=== PATIENT | female | born 1945 | race Caucasian/White ===

== ENCOUNTER → 2016-07-31 | Outpatient (CLI) | payer MEDICARE ==
[2015-06-15 11:00] VITALS: BP 102/66
[~2016-07-31] MED LIST: ALLO300T PO; AMLO10TA2 PO; ASPI81TA2 PO; CALC600T4 PO; CARB200T4 PO; CETI10TA22 PO; CHOL400T14 PO; DICL100G7 TP; DIPH50CA PO; ESTR1PAT87 TD; MAGN250T5 PO; METH2.5T PO; NORT25CA PO; OMEP20CA9 PO; OXYC-323 PO; POTA500T5 PO; THYR60TA PO; TRAM50TA PO; TRIA1CAP3 PO; VITA400C36 PO
--- NOTE | 2016-07-31 11:57 | KCIC ---
PROCEDURE MR of the left knee HISTORY Medial left knee pain, and posterior pain, for 1 year. Swelling. COMPARISON None TECHNIQUE The routine multiplanar sequences are obtained. FINDINGS Mild deformity of the medial meniscus compatible with mild degenerative tearing. There is slight extrusion of the medial meniscus from the medial joint compartment. There is abnormal signal within the lateral meniscus at the posterior horn through body segment, with blunting of the free margin, compatible with a tear. Anterior and posterior cruciate ligaments are intact. Medial collateral ligament intact. Iliotibial band unremarkable. Fibular collateral ligament, biceps femoris tendon and popliteus tendon are intact. Extensor mechanism is intact. Moderate joint effusion. Severe chondromalacia at the medial joint compartment with mild subchondral cystic change. Moderate lateral compartment chondromalacia. Minimal subchondral marrow edema at the lateral femoral condyle. Severe chondromalacia at the patella and femoral trochlea. There is no evidence of acute macro fracture or aggressive bone destruction. 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 Measures 5.7 cm longitudinal. IMPRESSION 1. Medial meniscal tear. 2. Lateral meniscal tear. 3. Primary osteoarthritis. Electronically signed by: Lewis Proctor MD (Jul 31, 2016 11:55:12)
== END | disposition home or self-care (01) ==
LOC: KCIC MRI 08:46
PROVIDERS: ATTEND Orthopaedic Surgery
DX: M17.12 Unilateral primary osteoarthritis, left knee (principal); S83.242A Other tear of medial meniscus, current injury, left knee, initial encounter; S83.282A Other tear of lateral meniscus, current injury, left knee, initial encounter; X58.XXXA Exposure to other specified factors, initial encounter; Y93.89 Activity, other specified; Y92.89 Other specified places as the place of occurrence of the external cause; Y99.8 Other external cause status
CPT/HCPCS: 73721

== ENCOUNTER → 2016-08-27 | Outpatient (CLI) | payer MEDICARE ==
[2015-06-15 11:00] VITALS: BP 102/66
--- NOTE | 2016-08-27 14:37 | RAD ---
Examination: Ultrasound left lower extremity venous duplex History: History of left knee surgery, evaluate for Gonzalez's cyst Comparison: None available Technique: Grayscale, color laboratory, spectral waveform is in the left lower extremity venous system were performed Findings: The visualized common femoral vein, superficial femoral vein, popliteal vein demonstrate normal compression and augmentation of flow. The visualized calf veins are patent There is a complex appearing cystic structure identified in the from the level of the left distal thigh to the distal calf measuring 15.7 cm in length likely probably a Gonzalez's cyst or seroma. Impression: 1. No evidence of deep venous thrombosis. 2. Complex appearing cystic structure identified extending from the left distal thigh to the distal calf region measuring 15.7 cm in length could be a Gonzalez's cyst or seroma.
== END | disposition home or self-care (01) ==
LOC: US 12:52
PROVIDERS: ATTEND Orthopaedic Surgery
DX: M79.662 Pain in left lower leg (principal); M79.89 Other specified soft tissue disorders
CPT/HCPCS: 93971

== ENCOUNTER 2017-11-26 16:41 | Inpatient (IN) | payer MEDICARE ==
[~2017-11-26] VITALS: Ht 162.6 cm; Wt 86.3 kg
[2017-11-26] MEDS: ESTRADIOL 1 MG TABLET. PO SCH (10:00)
[~2017-11-26 16:41] MED LIST changes: +ASPI-630 PO; -ASPI81TA2 PO; +DICL100G18 TP; -DICL100G7 TP; +MAGN250T10 PO; -MAGN250T5 PO
[2017-11-26] MEDS ORDERED: oxyCODONE/APAP 5/325 1 TAB TABLET PO ONE (17:45)
[2017-11-26] MEDS ORDERED: diazePAM 5 MG TABLET PO ONE (17:45)
--- NOTE | 2017-11-26 17:49 | PHYS DOC ---
Past Medical History Past Medical History: Hypertension Additional Past Medical Histor: rheumatoid arthritis Smoking: Quit Greater Than 1 Year Adult General Chief Complaint Chief Complaint: LOWER EXT PAIN HPI HPI Patient is a 71-year-old female who presents to the emergency department for evaluation. She is having pain in her left hip area, radiating down the lateral aspect of her left thigh. She states she has chronic back pain, but has not had a pain similar to this ever in the past or she states the pain began last week. She was seen in the emergency department in [place], [place] on Saturday night, and then again today. She states that she has been unable to walk secondary to pain. She denies any numbness, weakness, incontinence, or urinary symptoms. She has not had any fevers or chills, and denies any definite injuries. Movement seems to worsen her pain. There are no alleviating factors to her symptoms. She was placed on Flexeril and [place] 11/24, which did not improve her symptoms. I did speak with her primary care provider, who sent her to the emergency department today here. He had seen her today and [place] twice, and states that he would like us to "find out what's wrong with her and fix it", because the patient cannot live in pain like this. He was concerned the patient might have a hernia in her inguinal canal. The patient did have x-rays of her lumbar spine in her hips done on 11/24, reports of which have been included with her visit. They did show degenerative changes without other acute pathology. Review of Systems Review of Systems Constitutional: Denies fever or chills [] Eyes: Denies change in visual acuity, redness, or eye pain [] HENT: Denies nasal congestion or sore throat [] Respiratory: Denies cough or shortness of breath [] Cardiovascular: The patient denies any shortness of breath, chest pain, palpitations, or orthopnea [] GI: Denies abdominal pain, nausea, vomiting, bloody stools or diarrhea [] : Denies dysuria or hematuria [] Musculoskeletal: Denies back pain or joint pain other than the left hip as noted.[] Integument: Denies rash or skin lesions [] Neurologic: Denies headache, focal weakness or sensory changes [] Endocrine: Denies polyuria or polydipsia [] All other systems were reviewed and found to be within normal limits, except as documented in this note. Current Medications Current Medications Current Medications Medications (Trade) Dose Ordered Sig/Daya Start Time Stop Time Status Last Admin Dose Admin Diazepam (Valium) 5 mg 1X ONCE 11/26/17 17:45 11/26/17 17:46 DC 11/26/17 19:37 5 MG Oxycodone/ Acetaminophen (Percocet 5/325) 1 tab 1X ONCE 11/26/17 17:45 11/26/17 17:46 DC 11/26/17 19:37 1 TAB Allergies Allergies Allergies Coded Allergies Type Severity Reaction Last Updated Verified Iodinated Contrast- Oral and IV Dye Allergy Severe SWELLING 06/14/15 Yes Penicillins Allergy Severe RASH 06/14/15 Yes NSAIDS (Non-Steroidal Anti-Inflamma Allergy Intermediate 11/26/17 Yes cephalexin Allergy Intermediate 11/26/17 Yes codeine Allergy Intermediate HEART PALPITATIONS 06/14/15 Yes erythromycin base Allergy Intermediate 11/26/17 Yes hydrocodone Allergy Intermediate 11/26/17 Yes ibuprofen Allergy Intermediate 11/26/17 Yes indomethacin Allergy Intermediate 11/26/17 Yes morphine Allergy Intermediate 11/26/17 Yes pentazocine Allergy Intermediate 11/26/17 Yes tetracycline Allergy Intermediate 11/26/17 Yes gabapentin Adverse Reaction Mild JERKINESS 06/14/15 Yes Physical Exam Physical Exam PHYSICAL EXAM: CONSTITUTIONAL: Well developed, well nourished HEAD: normocephalic, atraumatic EENT: PERRL, EOMI. Conjunctivae normal color, sclerae non-icteric; moist mucous membranes. NECK: Supple, non-tender; no meningismus. LUNGS: Lungs CTA, breathing even and unlabored. Normal air movement. HEART: Regular rate and rhythm, no murmur CHEST: No deformity; non-tender ABDOMEN: The abdomen is soft, and non-tender, no masses or bruits. EXTREM: Normal ROM; no deformity, no calf tenderness. Normal pulses palpable in all extremities, including the lower extremities bilaterally, strong dorsalis pedis pulses. There is no pedal edema. SKIN: No rash; no diaphoresis NEURO: Alert; normal speech and cognition; CN's grossly intact; strength grossly intact without focal deficit. There is no foot drop. There is no perineal anesthesia or distal sensory deficit. BACK: No CVA TTP.There is no bony tenderness to palpation of the thoracic or lumbar spine. MUSCULOSKELETAL: There is diffuse tenderness to palpation of the left hip and left lower sacral area, posteriorly. There is also tenderness to palpation laterally. Straight leg raise is positive at about 45. Current Patient Data Vital Signs Vital Signs Date Time Temp Pulse Resp B/P (MAP) Pulse Ox O2 Delivery O2 Flow Rate FiO2 11/26/17 19:37 16 98 Room Air 11/26/17 19:22 91 136/78 (97) 2.0 11/26/17 18:00 98.3 98.3 Lab Values Laboratory Tests Test 11/26/17 18:43 11/26/17 19:01 White Blood Count 9.1 x10^3/uL (4.0-11.0) Red Blood Count 4.03 x10^6/uL (3.50-5.40) Hemoglobin 12.8 g/dL (12.0-15.5) Hematocrit 38.4 % (36.0-47.0) Mean Corpuscular Volume 95 fL (79-100) Mean Corpuscular Hemoglobin 32 pg (25-35) Mean Corpuscular Hemoglobin Concent 33 g/dL (31-37) Red Cell Distribution Width 14.1 % (11.5-14.5) Platelet Count 155 x10^3/uL (140-400) Neutrophils (%) (Auto) 73 % (31-73) Lymphocytes (%) (Auto) 12 % (24-48) L Monocytes (%) (Auto) 12 % (0-9) H Eosinophils (%) (Auto) 3 % (0-3) Basophils (%) (Auto) 0 % (0-3) Neutrophils # (Auto) 6.7 x10^3uL (1.8-7.7) Lymphocytes # (Auto) 1.1 x10^3/uL (1.0-4.8) Monocytes # (Auto) 1.1 x10^3/uL (0.0-1.1) Eosinophils # (Auto) 0.3 x10^3/uL (0.0-0.7) Basophils # (Auto) 0.0 x10^3/uL (0.0-0.2) Erythrocyte Sedimentation Rate 63 (0-25) H Sodium Level 140 mmol/L (136-145) Potassium Level 3.3 mmol/L (3.5-5.1) L Chloride Level 101 mmol/L (98-107) Carbon Dioxide Level 34 mmol/L (21-32) H Anion Gap 5 (6-14) L Blood Urea Nitrogen 14 mg/dL (7-20) Creatinine 0.7 mg/dL (0.6-1.0) Estimated GFR (Cockcroft-Gault) 82.3 BUN/Creatinine Ratio 20 (6-20) Glucose Level 96 mg/dL (70-99) Calcium Level 8.5 mg/dL (8.5-10.1) Total Bilirubin 0.3 mg/dL (0.2-1.0) Aspartate Amino Transferase (AST) 13 U/L (15-37) L Alanine Aminotransferase (ALT) 34 U/L (14-59) Alkaline Phosphatase 87 U/L (46-116) C-Reactive Protein, Quantitative 131.5 mg/L (0-3.3) H Total Protein 6.9 g/dL (6.4-8.2) Albumin 3.0 g/dL (3.4-5.0) L Albumin/Globulin Ratio 0.8 (1.0-1.7) L Urine Collection Type Unknown Urine Color Yellow Urine Clarity Clear Urine pH 7.0 Urine Specific [place] 1.015 Urine Protein Negative mg/dL (NEG-TRACE) Urine Glucose (UA) Negative mg/dL (NEG) Urine Ketones (Stick) Negative mg/dL (NEG) Urine Blood Moderate (NEG) Urine Nitrite Negative (NEG) Urine Bilirubin Negative (NEG) Urine Urobilinogen Dipstick 0.2 mg/dL (0.2 mg/dL) Urine Leukocyte Esterase Large (NEG) Urine RBC 3-5 /HPF (0-2) Urine WBC >40 /HPF (0-4) Urine Squamous Epithelial Cells Many /LPF Urine Bacteria Moderate /HPF (0-FEW) Laboratory Tests 11/26/17 18:43 Laboratory Tests 11/26/17 18:43 EKG EKG [] Radiology/Procedures Radiology/Procedures Impression: 1. Constipation. 2. Moderate left hip effusion with enhancement. Clinical correlation is suggested. Course & Med Decision Making Course & Med Decision Making Pertinent Labs and Imaging studies reviewed. (See chart for details) [6:00 PM: Pt care turned over to Dr Leon at shift change, pending work-up and final disposition.] I assumed care of this patient from Dr. Vang at shift turnover. At that time, CT scan was pending as well as labs. I did reexamine the patient. She does have some range of motion about the left hip that is tolerable but overall has pain. She describes groin pain. CT scan ultimately returned with a moderate effusion in that joint. Her CRP returned over 1:30. The patient does have known psoriatic arthritis for which she takes Humira as well as methotrexate. The patient has increased risk for infection but her clinical picture is not entirely clear. Decision is made to admit the patient for pain control. Orthopedic and infectious disease consults are placed. Blood cultures are collected. Antibiotics are held pending Ortho evaluation with the goal to not interfere with any additional specimen collection. The patient is nontoxic and afebrile at the time of admission. I discussed this patient with Dr. Braxton who will primarily admit the patient. Bridge orders are placed. Consults for Ortho and infectious disease are placed. Patient Dragon Disclaimer Dragon Disclaimer This electronic medical record was generated, in whole or in part, using a voice recognition dictation system. Departure Departure Referrals: GALINDO RIOS (PCP) TAMIR ZIMMERMAN MD Nov 26, 2017 17:48 NARESH LEON DO Nov 27, 2017 01:46
--- NOTE | 2017-11-26 18:14 | RAD ---
Abdominal and Pelvis CT, Without Contrast: History: 4 days of severe left groin pain. Comparison: None. Procedure: Axial images are obtained of the abdomen and pelvis, without IV or oral contrast. CT Abdomen without Contrast: Findings: Evaluation of solid organs is limited without contrast. Evaluation of stomach and bowel is limited without oral contrast. Liver: Normal. Spleen: Normal. Pancreas: Normal. Adrenal Glands: Normal. Kidneys: Normal. There is no free air or free fluid. There is no lymphadenopathy. Impression: Please see CT Pelvis without Contrast. End Impression. CT Pelvis without Contrast: Findings: The urinary bladder is well distended but otherwise appears normal. There is no free fluid. There is no lymphadenopathy. There is no pericolonic inflammation identified. The appendix is not seen. There is air and stool scattered throughout the colon. There is a moderate left joint effusion with enhancement. Impression: 1. Constipation. 2. Moderate left hip effusion with enhancement. Clinical correlation is suggested. End impression PQRS Compliance Statement: One or more of the following individualized dose reduction techniques were utilized for this examination: 1. Automated exposure control 2. Adjustment of the mA and/or kV according to patient size 3. Use of iterative reconstruction technique Electronically signed by: Renzo Valverde III, MD (11/26/2017 6:10 PM) [facility]
[2017-11-26 18:52] LABS: BASO % 0 % (0-3); EOS # 0.3 x10^3/uL (0.0-0.7); EOS % 3 % (0-3); HEMATOCRIT 38.4 % (36.0-47.0); HEMOGLOBIN 12.8 g/dL (12.0-15.5); LYMPH # 1.1 x10^3/uL (1.0-4.8); LYMPH % 12 % (24-48); MEAN CORPUSCULAR HEMOGLOBIN 32 pg (25-35); MEAN CORPUSCULAR HGB CONC 33 g/dL (31-37); MEAN CORPUSCULAR VOLUME 95 fL (79-100); MONO # 1.1 x10^3/uL (0.0-1.1); MONO % 12 % (0-9); NEUT # 6.7 x10^3uL (1.8-7.7); NEUT % 73 % (31-73); PLATELET COUNT 155 x10^3/uL (140-400); RED BLOOD COUNT 4.03 x10^6/uL (3.50-5.40); RED CELL DISTRIBUTION WIDTH 14.1 % (11.5-14.5); WHITE BLOOD COUNT 9.1 x10^3/uL (4.0-11.0)
[2017-11-26 19:07] LABS: CALCIUM 8.5 mg/dL (8.5-10.1); CREATININE 0.7 mg/dL (0.6-1.0); GFR 82.3; POTASSIUM 3.3 mmol/L (3.5-5.1)
[2017-11-26 19:14] LABS: ALBUMIN/GLOBULIN RATIO 0.8 (1.0-1.7); C-REACTIVE PROTEIN 131.5 mg/L (0-3.3); TOTAL BILIRUBIN 0.3 mg/dL (0.2-1.0); TOTAL PROTEIN 6.9 g/dL (6.4-8.2)
[2017-11-26] MEDS ORDERED: ONDANSETRON PF 4 MG/2 ML VIAL. IV PRN (20:45)
[2017-11-26 21:00] VITALS: BP 124/65
[2017-11-26 21:05] LABS: BILIRUBIN,URINE NEGATIVE (NEG); CLARITY,URINE CLEAR; COLOR,URINE YELLOW; NITRITE,URINE NEGATIVE (NEG); PROTEIN,URINE NEGATIVE (NEG-TRACE); UROBILINOGEN,URINE 0.2 mg/dL (0.2 mg/dL)
[2017-11-26 21:10] LABS: SQUAMOUS EPITHELIAL CELL,UR MANY /LPF
[2017-11-26 21:11] LABS: BACTERIA,URINE MODERATE /HPF (0-FEW); WBC,URINE >40 /HPF (0-4)
[2017-11-26] MEDS ORDERED: FOLI1TAB16 PO (22:45)
[2017-11-26] MEDS ORDERED: FURO40TA4 PO (22:45)
[2017-11-26] MEDS ORDERED: LORA10TA3 PO (22:45)
[2017-11-26] MEDS ORDERED: MULT1TAB52 PO (22:45)
[2017-11-26 23:00] VITALS: BP 129/70
[2017-11-26] MEDS: oxyCODONE IR 5 MG TABLET PO PRN (23:08)
[2017-11-27 03:00] VITALS: BP 126/58
[2017-11-27 04:08] LABS: BASO % 0 % (0-3); EOS # 0.3 x10^3/uL (0.0-0.7); EOS % 4 % (0-3); HEMOGLOBIN 11.9 g/dL (12.0-15.5); LYMPH # 1.2 x10^3/uL (1.0-4.8); LYMPH % 16 % (24-48); MEAN CORPUSCULAR HEMOGLOBIN 32 pg (25-35); MEAN CORPUSCULAR HGB CONC 34 g/dL (31-37); MEAN CORPUSCULAR VOLUME 95 fL (79-100); MONO # 0.9 x10^3/uL (0.0-1.1); MONO % 11 % (0-9); NEUT # 5.2 x10^3uL (1.8-7.7); NEUT % 69 % (31-73); PLATELET COUNT 164 x10^3/uL (140-400); RED BLOOD COUNT 3.69 x10^6/uL (3.50-5.40); RED CELL DISTRIBUTION WIDTH 14.8 % (11.5-14.5); WHITE BLOOD COUNT 7.5 x10^3/uL (4.0-11.0)
[2017-11-27] MEDS: ACETAMINOPHEN 325 MG TABLET. PO PRN ×2 (04:13→18:17)
[2017-11-27 04:29] LABS: ALBUMIN 2.7 g/dL (3.4-5.0); ALBUMIN/GLOBULIN RATIO 0.7 (1.0-1.7); CALCIUM 8.5 mg/dL (8.5-10.1); CREATININE 0.7 mg/dL (0.6-1.0); GFR 82.3; POTASSIUM 3.4 mmol/L (3.5-5.1); TOTAL BILIRUBIN 0.4 mg/dL (0.2-1.0); TOTAL PROTEIN 6.5 g/dL (6.4-8.2)
[2017-11-27] MEDS: oxyCODONE IR 5 MG TABLET PO PRN ×3 (04:59→20:12)
[2017-11-27 07:00] VITALS: BP 112/63
[2017-11-27] MEDS ORDERED: ONDANSETRON PF 4 MG/2 ML VIAL. IV PRN (08:30)
--- NOTE | 2017-11-27 08:57 | PDOC ---
Infectious Disease Note Vital Sign Vital Signs Vital Signs Date Time Temp Pulse Resp B/P (MAP) Pulse Ox O2 Delivery O2 Flow Rate FiO2 11/27/17 07:00 97.7 85 12 112/63 (79) 94 Nasal Cannula 2.0 97.7 Labs Lab Laboratory Tests Test 11/26/17 18:43 11/26/17 19:01 11/27/17 03:50 White Blood Count 9.1 x10^3/uL (4.0-11.0) 7.5 x10^3/uL (4.0-11.0) Red Blood Count 4.03 x10^6/uL (3.50-5.40) 3.69 x10^6/uL (3.50-5.40) Hemoglobin 12.8 g/dL (12.0-15.5) 11.9 g/dL (12.0-15.5) Hematocrit 38.4 % (36.0-47.0) 35.0 % (36.0-47.0) Mean Corpuscular Volume 95 fL (79-100) 95 fL (79-100) Mean Corpuscular Hemoglobin 32 pg (25-35) 32 pg (25-35) Mean Corpuscular Hemoglobin Concent 33 g/dL (31-37) 34 g/dL (31-37) Red Cell Distribution Width 14.1 % (11.5-14.5) 14.8 % (11.5-14.5) Platelet Count 155 x10^3/uL (140-400) 164 x10^3/uL (140-400) Neutrophils (%) (Auto) 73 % (31-73) 69 % (31-73) Lymphocytes (%) (Auto) 12 % (24-48) 16 % (24-48) Monocytes (%) (Auto) 12 % (0-9) 11 % (0-9) Eosinophils (%) (Auto) 3 % (0-3) 4 % (0-3) Basophils (%) (Auto) 0 % (0-3) 0 % (0-3) Neutrophils # (Auto) 6.7 x10^3uL (1.8-7.7) 5.2 x10^3uL (1.8-7.7) Lymphocytes # (Auto) 1.1 x10^3/uL (1.0-4.8) 1.2 x10^3/uL (1.0-4.8) Monocytes # (Auto) 1.1 x10^3/uL (0.0-1.1) 0.9 x10^3/uL (0.0-1.1) Eosinophils # (Auto) 0.3 x10^3/uL (0.0-0.7) 0.3 x10^3/uL (0.0-0.7) Basophils # (Auto) 0.0 x10^3/uL (0.0-0.2) 0.0 x10^3/uL (0.0-0.2) Erythrocyte Sedimentation Rate 63 (0-25) Sodium Level 140 mmol/L (136-145) 140 mmol/L (136-145) Potassium Level 3.3 mmol/L (3.5-5.1) 3.4 mmol/L (3.5-5.1) Chloride Level 101 mmol/L (98-107) 102 mmol/L (98-107) Carbon Dioxide Level 34 mmol/L (21-32) 34 mmol/L (21-32) Anion Gap 5 (6-14) 4 (6-14) Blood Urea Nitrogen 14 mg/dL (7-20) 16 mg/dL (7-20) Creatinine 0.7 mg/dL (0.6-1.0) 0.7 mg/dL (0.6-1.0) Estimated GFR (Cockcroft-Gault) 82.3 82.3 BUN/Creatinine Ratio 20 (6-20) 23 (6-20) Glucose Level 96 mg/dL (70-99) 91 mg/dL (70-99) Calcium Level 8.5 mg/dL (8.5-10.1) 8.5 mg/dL (8.5-10.1) Total Bilirubin 0.3 mg/dL (0.2-1.0) 0.4 mg/dL (0.2-1.0) Aspartate Amino Transf (AST/SGOT) 13 U/L (15-37) 14 U/L (15-37) Alanine Aminotransferase (ALT/SGPT) 34 U/L (14-59) 28 U/L (14-59) Alkaline Phosphatase 87 U/L (46-116) 77 U/L (46-116) C-Reactive Protein, Quantitative 131.5 mg/L (0-3.3) Total Protein 6.9 g/dL (6.4-8.2) 6.5 g/dL (6.4-8.2) Albumin 3.0 g/dL (3.4-5.0) 2.7 g/dL (3.4-5.0) Albumin/Globulin Ratio 0.8 (1.0-1.7) 0.7 (1.0-1.7) Urine Collection Type Unknown Urine Color Yellow Urine Clarity Clear Urine pH 7.0 Urine Specific [place] 1.015 Urine Protein Negative mg/dL (NEG-TRACE) Urine Glucose (UA) Negative mg/dL (NEG) Urine Ketones (Stick) Negative mg/dL (NEG) Urine Blood Moderate (NEG) Urine Nitrite Negative (NEG) Urine Bilirubin Negative (NEG) Urine Urobilinogen Dipstick 0.2 mg/dL (0.2 mg/dL) Urine Leukocyte Esterase Large (NEG) Urine RBC 3-5 /HPF (0-2) Urine WBC >40 /HPF (0-4) Urine Squamous Epithelial Cells Many /LPF Urine Bacteria Moderate /HPF (0-FEW) Objective Assessment Left hip pain with effusion rule out infection RA on kishore h/o Gout Plan Plan of Care no antibiotics for now hip aspiration for bacterial, fungal and afb stain and culture supportive care d/w pt and DARIN FABIAN MD Nov 27, 2017 08:57
[2017-11-27] MEDS ORDERED: NON FORMULARY ITEM (Loratadine 10 MG) PO SCH (09:00)
--- NOTE | 2017-11-27 09:52 | PDOC1 ---
History and Physical Date of Admission Date of Admission DATE: 11/27/17 TIME: 09:44 Identification/Chief Complaint Chief Complaint intractable left hip pain Source Source: Caregiver, Chart review, Patient History of Present Illness History of Present Illness Very pleasant 71-year-old female who has had a diagnosis of RA and psoriatic arthritis since age 20, maintained on methotrexate decades, down to 2 pills every weekly, and recently has been put on Humira, has received about half a yr's worth of dose, comes in because of intractable left hip pain. Denies any recent trauma or surgery to that hip. Has had 2 Visits, with No Resolution of Pain despite by Mouth Pain Medicines at Home. Hence Went to the Emergency Room Last Night, Imaging Shows Left Hip Effusion. There Are Concerns of Septic Arthritis Because of Elevated Sedimentation Rate of 63. No Leukocytosis, No Fever. Orthopedics and ID on Board. Not Started on Antibiotics yet Which Is Good. As Discussed with Infectious Disease, Plan Is to Drain the Fluid, Sent to Lab and Then Start Antibiotics. Patient Is Nontoxic Appearing, Otherwise Okay If Not Moving the Left Hip. We Will Hold the Methotrexate, Humira, and Aspirin Given She Needs Her Immune System to Fight This Infection If This Is Indeed a Septic Hip. I Will Hold Aspirin Pending Drainage of the Left Hip Fluid. Past Medical History Cardiovascular: HTN GI: GERD Musculoskeletal: Other (RA and psoriatic arthritis) Rheumatologic: Rheumatoid arthritis Endocrine: Hypothyroidism Past Surgical History Past Surgical History: Appendectomy, Tonsillectomy, Hysterectomy, Other Family History Family History: Cancer, Diabetes, Heart Disease, Osteo Arthiritis, Stroke Social History Smoke: No ALCOHOL: rare Drugs: None Current Problem List Problem List Problems Medical Problems: (1) Left hip pain Status: Acute Current Medications Current Medications Current Medications Oxycodone/ Acetaminophen (Percocet 5/325) 1 tab 1X ONCE PO Last administered on 11/26/17at 19:37; Start 11/26/17 at 17:45; Stop 11/26/17 at 17:46; Status DC Diazepam (Valium) 5 mg 1X ONCE PO Last administered on 11/26/17at 19:37; Start 11/26/17 at 17:45; Stop 11/26/17 at 17:46; Status DC Ondansetron HCl (Zofran) 4 mg PRN Q8HRS PRN IV NAUSEA/VOMITING; Start 11/26/17 at 20:45; Stop 11/27/17 at 08:22; Status DC Acetaminophen (Tylenol) 650 mg PRN Q4HRS PRN PO FEVER Last administered on 11/27at 04:13; Start 11/26/17 at 20:45; Stop 11/27/17 at 20:44 Oxycodone HCl (Roxicodone) 10 mg PRN Q6HRS PRN PO PAIN Last administered on at 04:59; Start 11/26/17 at 20:45 Ondansetron HCl (Zofran) 4 mg PRN Q6HRS PRN IV NAUSEA/VOMITING; Start 11/27/17 at 08:30 Allopurinol (Zyloprim) 300 mg DAILY PO ; Start 11/27/17 at 09:00 Amlodipine Besylate (Norvasc) 5 mg DAILY PO ; Start 11/27/17 at 09:00 Carbamazepine (TEGretol) 200 mg BID PO ; Start 11/27/17 at 09:00 Cetirizine HCl (ZyrTEC) 10 mg DAILY PO ; Start 11/27/17 at 09:00 Folic Acid (Folic Acid) 1 mg DAILY PO ; Start 11/27/17 at 09:00 Furosemide (Lasix) 40 mg BID92 PO ; Start 11/27/17 at 09:00 Nortriptyline HCl (Pamelor) 25 mg QID PO ; Start 11/27/17 at 09:00 Thyroid (Alligator Thyroid) 60 mg BID PO ; Start 11/27/17 at 09:00 Diphenhydramine HCl (Benadryl) 25 mg QHS PO ; Start 11/27/17 at 21:00 Estradiol (Estrace) 1 mg DAILY PO ; Start 11/27/17 at 10:00 Non-Formulary Medication (Loratadine ) 10 mg DAILY PO ; Start 11/27/17 at 09:00 ; Stop 11/27/17 at 09:00; Status DC Multivitamins (Thera M Plus) 1 tab BID PO ; Start 11/27/17 at 09:00 Fentanyl Citrate (Fentanyl 2ml Vial) 50 mcg PRN Q2HR PRN IV PAIN; Start at 08:30 Active Scripts Active Reported Loratadine 10 Mg Tablet 10 Mg PO DAILY Multivitamins (Multivitamin) 1 Each Tablet 1 Tab PO BID Furosemide 40 Mg Tablet 40 Mg PO BID Folic Acid 1 Mg Tablet 1 Mg PO DAILY Aspirin 81 Mg Tab.chew 1 Tab PO DAILY LAST DOSE GIVEN: DATE: 06/15/15 TIME: 09 AM NEXT DOSE DUE: DATE: 06/16/15 TIME: 09 AM Diphenhydramine Hcl 50 Mg Capsule 25 Mg PO HS take tonight Zyrtec (Cetirizine Hcl) 10 Mg Tablet 10 Mg PO LAST DOSE GIVEN: DATE: 06/15/15 TIME: 09 AM NEXT DOSE DUE: DATE: 06/16/15 TIME: 09 AM Methotrexate (Methotrexate Sodium) 2.5 Mg Tablet 2.5 Mg PO 2X/WEEK Not taken today, resume tomorrow Estradiol 1 Each Patch.tdsw 1 Mg TD DAILY none taken during hospital stay Carbamazepine 200 Mg Tablet 200 Mg PO BID LAST DOSE GIVEN: DATE: 06/15/15 TIME: 09 am NEXT DOSE DUE: DATE: 06/15/15 TIME: 09 PM Allopurinol 300 Mg Tablet 300 Mg PO DAILY LAST DOSE GIVEN: DATE: 06/15/15 TIME: 09 AM NEXT DOSE DUE: DATE: 06/16/15 TIME: 09 AM Alligator Thyroid (Thyroid,Pork) 60 Mg Tablet 60 Mg PO BID LAST DOSE GIVEN: DATE: 06/15/15 TIME: 9 AM NEXT DOSE DUE: DATE:06/16/15 TIME: 9 PM Amlodipine Besylate 10 Mg Tablet 5 Mg PO DAILY none taken today, resume tomorrow 06/16/15 Nortriptyline Hcl 25 Mg Capsule 25 Mg PO QID LAST DOSE GIVEN: DATE: 06/15/15 TIME: 1 PM NEXT DOSE DUE: DATE: 06/15/15 TIME: 5 PM Allergies Allergies: Coded Allergies: Iodinated Contrast- Oral and IV Dye (Verified Allergy, Severe, SWELLING, ) Penicillins (Verified Allergy, Severe, RASH, 06/14/15) NSAIDS (Non-Steroidal Anti-Inflamma (Verified Allergy, Intermediate, ) cephalexin (Verified Allergy, Intermediate, 11/26/17) codeine (Verified Allergy, Intermediate, HEART PALPITATIONS, 06/14/15) erythromycin base (Verified Allergy, Intermediate, 11/26/17) hydrocodone (Verified Allergy, Intermediate, 11/26/17) ibuprofen (Verified Allergy, Intermediate, 11/26/17) indomethacin (Verified Allergy, Intermediate, 11/26/17) morphine (Verified Allergy, Intermediate, 11/26/17) pentazocine (Verified Allergy, Intermediate, 11/26/17) tetracycline (Verified Allergy, Intermediate, 11/26/17) gabapentin (Verified Adverse Reaction, Mild, JERKINESS, 06/14/15) ROS Review of System left hip pain otherwise the rest of 14 point systems reviewed negative Physical Exam General: Alert, Oriented X3, Cooperative, No acute distress HEENT: Atraumatic, PERRLA, EOMI Lungs: Clear to auscultation, Normal air movement Heart: S1S2, RRR, no thrills, no rubs, no gallops, no murmurs Cardiovascular: S1, S2 Breasts: Normal, Rt breast nml w/o mass, Lt breast nml w/o mass, Nipples normal Abdomen: Normal bowel sounds, Soft, No tenderness, No hepatosplenomegaly, No masses Extremities: Other (left hip pain on palpation, palpable dorsalis pedis pulses and gluteal artery) Skin: No rashes, No breakdown, No significant lesion Neuro: Normal gait, Normal speech, Strength at 5/5 X4 ext, Normal tone, Sensation intact, Cranial nerves 3-12 NL, Reflexes 2+ Psych/Mental Status: Mental status NL, Mood NL Vitals Vitals Vital Signs Date Time Temp Pulse Resp B/P (MAP) Pulse Ox O2 Delivery O2 Flow Rate FiO2 11/27/17 07:00 97.7 85 12 112/63 (79) 94 Nasal Cannula 2.0 97.7 Labs Labs Laboratory Tests Test 11/26/17 18:43 11/26/17 19:01 11/27/17 03:50 White Blood Count 9.1 x10^3/uL (4.0-11.0) 7.5 x10^3/uL (4.0-11.0) Red Blood Count 4.03 x10^6/uL (3.50-5.40) 3.69 x10^6/uL (3.50-5.40) Hemoglobin 12.8 g/dL (12.0-15.5) 11.9 g/dL (12.0-15.5) Hematocrit 38.4 % (36.0-47.0) 35.0 % (36.0-47.0) Mean Corpuscular Volume 95 fL (79-100) 95 fL (79-100) Mean Corpuscular Hemoglobin 32 pg (25-35) 32 pg (25-35) Mean Corpuscular Hemoglobin Concent 33 g/dL (31-37) 34 g/dL (31-37) Red Cell Distribution Width 14.1 % (11.5-14.5) 14.8 % (11.5-14.5) Platelet Count 155 x10^3/uL (140-400) 164 x10^3/uL (140-400) Neutrophils (%) (Auto) 73 % (31-73) 69 % (31-73) Lymphocytes (%) (Auto) 12 % (24-48) 16 % (24-48) Monocytes (%) (Auto) 12 % (0-9) 11 % (0-9) Eosinophils (%) (Auto) 3 % (0-3) 4 % (0-3) Basophils (%) (Auto) 0 % (0-3) 0 % (0-3) Neutrophils # (Auto) 6.7 x10^3uL (1.8-7.7) 5.2 x10^3uL (1.8-7.7) Lymphocytes # (Auto) 1.1 x10^3/uL (1.0-4.8) 1.2 x10^3/uL (1.0-4.8) Monocytes # (Auto) 1.1 x10^3/uL (0.0-1.1) 0.9 x10^3/uL (0.0-1.1) Eosinophils # (Auto) 0.3 x10^3/uL (0.0-0.7) 0.3 x10^3/uL (0.0-0.7) Basophils # (Auto) 0.0 x10^3/uL (0.0-0.2) 0.0 x10^3/uL (0.0-0.2) Erythrocyte Sedimentation Rate 63 (0-25) Sodium Level 140 mmol/L (136-145) 140 mmol/L (136-145) Potassium Level 3.3 mmol/L (3.5-5.1) 3.4 mmol/L (3.5-5.1) Chloride Level 101 mmol/L (98-107) 102 mmol/L (98-107) Carbon Dioxide Level 34 mmol/L (21-32) 34 mmol/L (21-32) Anion Gap 5 (6-14) 4 (6-14) Blood Urea Nitrogen 14 mg/dL (7-20) 16 mg/dL (7-20) Creatinine 0.7 mg/dL (0.6-1.0) 0.7 mg/dL (0.6-1.0) Estimated GFR (Cockcroft-Gault) 82.3 82.3 BUN/Creatinine Ratio 20 (6-20) 23 (6-20) Glucose Level 96 mg/dL (70-99) 91 mg/dL (70-99) Calcium Level 8.5 mg/dL (8.5-10.1) 8.5 mg/dL (8.5-10.1) Total Bilirubin 0.3 mg/dL (0.2-1.0) 0.4 mg/dL (0.2-1.0) Aspartate Amino Transf (AST/SGOT) 13 U/L (15-37) 14 U/L (15-37) Alanine Aminotransferase (ALT/SGPT) 34 U/L (14-59) 28 U/L (14-59) Alkaline Phosphatase 87 U/L (46-116) 77 U/L (46-116) C-Reactive Protein, Quantitative 131.5 mg/L (0-3.3) Total Protein 6.9 g/dL (6.4-8.2) 6.5 g/dL (6.4-8.2) Albumin 3.0 g/dL (3.4-5.0) 2.7 g/dL (3.4-5.0) Albumin/Globulin Ratio 0.8 (1.0-1.7) 0.7 (1.0-1.7) Urine Collection Type Unknown Urine Color Yellow Urine Clarity Clear Urine pH 7.0 Urine Specific [place] 1.015 Urine Protein Negative mg/dL (NEG-TRACE) Urine Glucose (UA) Negative mg/dL (NEG) Urine Ketones (Stick) Negative mg/dL (NEG) Urine Blood Moderate (NEG) Urine Nitrite Negative (NEG) Urine Bilirubin Negative (NEG) Urine Urobilinogen Dipstick 0.2 mg/dL (0.2 mg/dL) Urine Leukocyte Esterase Large (NEG) Urine RBC 3-5 /HPF (0-2) Urine WBC >40 /HPF (0-4) Urine Squamous Epithelial Cells Many /LPF Urine Bacteria Moderate /HPF (0-FEW) Laboratory Tests Test 11/26/17 18:43 11/26/17 19:01 11/27/17 03:50 White Blood Count 9.1 x10^3/uL (4.0-11.0) 7.5 x10^3/uL (4.0-11.0) Red Blood Count 4.03 x10^6/uL (3.50-5.40) 3.69 x10^6/uL (3.50-5.40) Hemoglobin 12.8 g/dL (12.0-15.5) 11.9 g/dL (12.0-15.5) Hematocrit 38.4 % (36.0-47.0) 35.0 % (36.0-47.0) Mean Corpuscular Volume 95 fL (79-100) 95 fL (79-100) Mean Corpuscular Hemoglobin 32 pg (25-35) 32 pg (25-35) Mean Corpuscular Hemoglobin Concent 33 g/dL (31-37) 34 g/dL (31-37) Red Cell Distribution Width 14.1 % (11.5-14.5) 14.8 % (11.5-14.5) Platelet Count 155 x10^3/uL (140-400) 164 x10^3/uL (140-400) Neutrophils (%) (Auto) 73 % (31-73) 69 % (31-73) Lymphocytes (%) (Auto) 12 % (24-48) 16 % (24-48) Monocytes (%) (Auto) 12 % (0-9) 11 % (0-9) Eosinophils (%) (Auto) 3 % (0-3) 4 % (0-3) Basophils (%) (Auto) 0 % (0-3) 0 % (0-3) Neutrophils # (Auto) 6.7 x10^3uL (1.8-7.7) 5.2 x10^3uL (1.8-7.7) Lymphocytes # (Auto) 1.1 x10^3/uL (1.0-4.8) 1.2 x10^3/uL (1.0-4.8) Monocytes # (Auto) 1.1 x10^3/uL (0.0-1.1) 0.9 x10^3/uL (0.0-1.1) Eosinophils # (Auto) 0.3 x10^3/uL (0.0-0.7) 0.3 x10^3/uL (0.0-0.7) Basophils # (Auto) 0.0 x10^3/uL (0.0-0.2) 0.0 x10^3/uL (0.0-0.2) Erythrocyte Sedimentation Rate 63 (0-25) Sodium Level 140 mmol/L (136-145) 140 mmol/L (136-145) Potassium Level 3.3 mmol/L (3.5-5.1) 3.4 mmol/L (3.5-5.1) Chloride Level 101 mmol/L (98-107) 102 mmol/L (98-107) Carbon Dioxide Level 34 mmol/L (21-32) 34 mmol/L (21-32) Anion Gap 5 (6-14) 4 (6-14) Blood Urea Nitrogen 14 mg/dL (7-20) 16 mg/dL (7-20) Creatinine 0.7 mg/dL (0.6-1.0) 0.7 mg/dL (0.6-1.0) Estimated GFR (Cockcroft-Gault) 82.3 82.3 BUN/Creatinine Ratio 20 (6-20) 23 (6-20) Glucose Level 96 mg/dL (70-99) 91 mg/dL (70-99) Calcium Level 8.5 mg/dL (8.5-10.1) 8.5 mg/dL (8.5-10.1) Total Bilirubin 0.3 mg/dL (0.2-1.0) 0.4 mg/dL (0.2-1.0) Aspartate Amino Transf (AST/SGOT) 13 U/L (15-37) 14 U/L (15-37) Alanine Aminotransferase (ALT/SGPT) 34 U/L (14-59) 28 U/L (14-59) Alkaline Phosphatase 87 U/L (46-116) 77 U/L (46-116) C-Reactive Protein, Quantitative 131.5 mg/L (0-3.3) Total Protein 6.9 g/dL (6.4-8.2) 6.5 g/dL (6.4-8.2) Albumin 3.0 g/dL (3.4-5.0) 2.7 g/dL (3.4-5.0) Albumin/Globulin Ratio 0.8 (1.0-1.7) 0.7 (1.0-1.7) Urine Collection Type Unknown Urine Color Yellow Urine Clarity Clear Urine pH 7.0 Urine Specific [place] 1.015 Urine Protein Negative mg/dL (NEG-TRACE) Urine Glucose (UA) Negative mg/dL (NEG) Urine Ketones (Stick) Negative mg/dL (NEG) Urine Blood Moderate (NEG) Urine Nitrite Negative (NEG) Urine Bilirubin Negative (NEG) Urine Urobilinogen Dipstick 0.2 mg/dL (0.2 mg/dL) Urine Leukocyte Esterase Large (NEG) Urine RBC 3-5 /HPF (0-2) Urine WBC >40 /HPF (0-4) Urine Squamous Epithelial Cells Many /LPF Urine Bacteria Moderate /HPF (0-FEW) VTE Prophylaxis Ordered VTE Prophylaxis Devices: Yes VTE Pharmacological Prophylaxi: Yes Assessment/Plan Assessment/Plan Intractable left hip pain, no fracture, no recent trauma-need to rule out septic arthritis with elevated ESR in this immunosuppressed patient RA, psoriatic arthritis on immunosuppressants - was on methotrexate since age 20 and recently in [facility], has gotten half a years dose already PLAN: NOthing By mouth for now until orthopedics drains the fluid Lab studies for the fluid tests are already ordered by ID Then IV antibiotics PT OT Home meds have been reconciled Discussed with ID, patient, and signif other at bedside FRANKLIN MRUILLO MD Nov 27, 2017 09:52
[2017-11-27] MEDS: FUROSEMIDE 40 MG TABLET. PO SCH ×2 (10:08→14:00)
[2017-11-27] MEDS: NORTRIPTYLINE 25 MG CAPSULE PO SCH ×4 (10:09→20:12)
[2017-11-27] MEDS: FOLIC ACID 1 MG TABLET. PO SCH (10:11)
[2017-11-27] MEDS: carBAMazepine 200 MG TABLET PO SCH ×2 (10:12→20:11)
[2017-11-27] MEDS: MULTIVITAMIN with MINERAL TABLET. PO SCH ×2 (10:12→20:11)
[2017-11-27] MEDS: amLODIPine BESYLATE 5 MG TABLET PO SCH (10:12)
[2017-11-27] MEDS: ALLOPURINOL 300 MG TABLET. PO SCH (10:13)
[2017-11-27] MEDS: CETIRIZINE HCL 10 MG TABLET. PO SCH (10:20)
[2017-11-27 11:00] VITALS: BP 123/82
--- NOTE | 2017-11-27 11:44 | PDOC ---
ORTHO PROGRESS NOTES Vitals Vital Signs Date Time Temp Pulse Resp B/P (MAP) Pulse Ox O2 Delivery O2 Flow Rate FiO2 11/27/17 11:00 97.7 73 14 123/82 (96) 94 Nasal Cannula 2.0 97.7 Labs Laboratory Tests Test 11/26/17 18:43 11/26/17 19:01 11/27/17 03:50 White Blood Count 9.1 x10^3/uL (4.0-11.0) 7.5 x10^3/uL (4.0-11.0) Red Blood Count 4.03 x10^6/uL (3.50-5.40) 3.69 x10^6/uL (3.50-5.40) Hemoglobin 12.8 g/dL (12.0-15.5) 11.9 g/dL (12.0-15.5) Hematocrit 38.4 % (36.0-47.0) 35.0 % (36.0-47.0) Mean Corpuscular Volume 95 fL (79-100) 95 fL (79-100) Mean Corpuscular Hemoglobin 32 pg (25-35) 32 pg (25-35) Mean Corpuscular Hemoglobin Concent 33 g/dL (31-37) 34 g/dL (31-37) Red Cell Distribution Width 14.1 % (11.5-14.5) 14.8 % (11.5-14.5) Platelet Count 155 x10^3/uL (140-400) 164 x10^3/uL (140-400) Neutrophils (%) (Auto) 73 % (31-73) 69 % (31-73) Lymphocytes (%) (Auto) 12 % (24-48) 16 % (24-48) Monocytes (%) (Auto) 12 % (0-9) 11 % (0-9) Eosinophils (%) (Auto) 3 % (0-3) 4 % (0-3) Basophils (%) (Auto) 0 % (0-3) 0 % (0-3) Neutrophils # (Auto) 6.7 x10^3uL (1.8-7.7) 5.2 x10^3uL (1.8-7.7) Lymphocytes # (Auto) 1.1 x10^3/uL (1.0-4.8) 1.2 x10^3/uL (1.0-4.8) Monocytes # (Auto) 1.1 x10^3/uL (0.0-1.1) 0.9 x10^3/uL (0.0-1.1) Eosinophils # (Auto) 0.3 x10^3/uL (0.0-0.7) 0.3 x10^3/uL (0.0-0.7) Basophils # (Auto) 0.0 x10^3/uL (0.0-0.2) 0.0 x10^3/uL (0.0-0.2) Erythrocyte Sedimentation Rate 63 (0-25) Sodium Level 140 mmol/L (136-145) 140 mmol/L (136-145) Potassium Level 3.3 mmol/L (3.5-5.1) 3.4 mmol/L (3.5-5.1) Chloride Level 101 mmol/L (98-107) 102 mmol/L (98-107) Carbon Dioxide Level 34 mmol/L (21-32) 34 mmol/L (21-32) Anion Gap 5 (6-14) 4 (6-14) Blood Urea Nitrogen 14 mg/dL (7-20) 16 mg/dL (7-20) Creatinine 0.7 mg/dL (0.6-1.0) 0.7 mg/dL (0.6-1.0) Estimated GFR (Cockcroft-Gault) 82.3 82.3 BUN/Creatinine Ratio 20 (6-20) 23 (6-20) Glucose Level 96 mg/dL (70-99) 91 mg/dL (70-99) Calcium Level 8.5 mg/dL (8.5-10.1) 8.5 mg/dL (8.5-10.1) Total Bilirubin 0.3 mg/dL (0.2-1.0) 0.4 mg/dL (0.2-1.0) Aspartate Amino Transf (AST/SGOT) 13 U/L (15-37) 14 U/L (15-37) Alanine Aminotransferase (ALT/SGPT) 34 U/L (14-59) 28 U/L (14-59) Alkaline Phosphatase 87 U/L (46-116) 77 U/L (46-116) C-Reactive Protein, Quantitative 131.5 mg/L (0-3.3) Total Protein 6.9 g/dL (6.4-8.2) 6.5 g/dL (6.4-8.2) Albumin 3.0 g/dL (3.4-5.0) 2.7 g/dL (3.4-5.0) Albumin/Globulin Ratio 0.8 (1.0-1.7) 0.7 (1.0-1.7) Urine Collection Type Unknown Urine Color Yellow Urine Clarity Clear Urine pH 7.0 Urine Specific [place] 1.015 Urine Protein Negative mg/dL (NEG-TRACE) Urine Glucose (UA) Negative mg/dL (NEG) Urine Ketones (Stick) Negative mg/dL (NEG) Urine Blood Moderate (NEG) Urine Nitrite Negative (NEG) Urine Bilirubin Negative (NEG) Urine Urobilinogen Dipstick 0.2 mg/dL (0.2 mg/dL) Urine Leukocyte Esterase Large (NEG) Urine RBC 3-5 /HPF (0-2) Urine WBC >40 /HPF (0-4) Urine Squamous Epithelial Cells Many /LPF Urine Bacteria Moderate /HPF (0-FEW) Laboratory Tests Test 11/26/17 18:43 11/26/17 19:01 11/27/17 03:50 White Blood Count 9.1 x10^3/uL (4.0-11.0) 7.5 x10^3/uL (4.0-11.0) Red Blood Count 4.03 x10^6/uL (3.50-5.40) 3.69 x10^6/uL (3.50-5.40) Hemoglobin 12.8 g/dL (12.0-15.5) 11.9 g/dL (12.0-15.5) Hematocrit 38.4 % (36.0-47.0) 35.0 % (36.0-47.0) Mean Corpuscular Volume 95 fL (79-100) 95 fL (79-100) Mean Corpuscular Hemoglobin 32 pg (25-35) 32 pg (25-35) Mean Corpuscular Hemoglobin Concent 33 g/dL (31-37) 34 g/dL (31-37) Red Cell Distribution Width 14.1 % (11.5-14.5) 14.8 % (11.5-14.5) Platelet Count 155 x10^3/uL (140-400) 164 x10^3/uL (140-400) Neutrophils (%) (Auto) 73 % (31-73) 69 % (31-73) Lymphocytes (%) (Auto) 12 % (24-48) 16 % (24-48) Monocytes (%) (Auto) 12 % (0-9) 11 % (0-9) Eosinophils (%) (Auto) 3 % (0-3) 4 % (0-3) Basophils (%) (Auto) 0 % (0-3) 0 % (0-3) Neutrophils # (Auto) 6.7 x10^3uL (1.8-7.7) 5.2 x10^3uL (1.8-7.7) Lymphocytes # (Auto) 1.1 x10^3/uL (1.0-4.8) 1.2 x10^3/uL (1.0-4.8) Monocytes # (Auto) 1.1 x10^3/uL (0.0-1.1) 0.9 x10^3/uL (0.0-1.1) Eosinophils # (Auto) 0.3 x10^3/uL (0.0-0.7) 0.3 x10^3/uL (0.0-0.7) Basophils # (Auto) 0.0 x10^3/uL (0.0-0.2) 0.0 x10^3/uL (0.0-0.2) Erythrocyte Sedimentation Rate 63 (0-25) Sodium Level 140 mmol/L (136-145) 140 mmol/L (136-145) Potassium Level 3.3 mmol/L (3.5-5.1) 3.4 mmol/L (3.5-5.1) Chloride Level 101 mmol/L (98-107) 102 mmol/L (98-107) Carbon Dioxide Level 34 mmol/L (21-32) 34 mmol/L (21-32) Anion Gap 5 (6-14) 4 (6-14) Blood Urea Nitrogen 14 mg/dL (7-20) 16 mg/dL (7-20) Creatinine 0.7 mg/dL (0.6-1.0) 0.7 mg/dL (0.6-1.0) Estimated GFR (Cockcroft-Gault) 82.3 82.3 BUN/Creatinine Ratio 20 (6-20) 23 (6-20) Glucose Level 96 mg/dL (70-99) 91 mg/dL (70-99) Calcium Level 8.5 mg/dL (8.5-10.1) 8.5 mg/dL (8.5-10.1) Total Bilirubin 0.3 mg/dL (0.2-1.0) 0.4 mg/dL (0.2-1.0) Aspartate Amino Transf (AST/SGOT) 13 U/L (15-37) 14 U/L (15-37) Alanine Aminotransferase (ALT/SGPT) 34 U/L (14-59) 28 U/L (14-59) Alkaline Phosphatase 87 U/L (46-116) 77 U/L (46-116) C-Reactive Protein, Quantitative 131.5 mg/L (0-3.3) Total Protein 6.9 g/dL (6.4-8.2) 6.5 g/dL (6.4-8.2) Albumin 3.0 g/dL (3.4-5.0) 2.7 g/dL (3.4-5.0) Albumin/Globulin Ratio 0.8 (1.0-1.7) 0.7 (1.0-1.7) Urine Collection Type Unknown Urine Color Yellow Urine Clarity Clear Urine pH 7.0 Urine Specific [place] 1.015 Urine Protein Negative mg/dL (NEG-TRACE) Urine Glucose (UA) Negative mg/dL (NEG) Urine Ketones (Stick) Negative mg/dL (NEG) Urine Blood Moderate (NEG) Urine Nitrite Negative (NEG) Urine Bilirubin Negative (NEG) Urine Urobilinogen Dipstick 0.2 mg/dL (0.2 mg/dL) Urine Leukocyte Esterase Large (NEG) Urine RBC 3-5 /HPF (0-2) Urine WBC >40 /HPF (0-4) Urine Squamous Epithelial Cells Many /LPF Urine Bacteria Moderate /HPF (0-FEW) Assessment and Plan patient seen aspiration pending anticipating that cell count will be abnormal given hx of RA DJD exacerbation vs poss septic joint I and D if Cx grow anything if not, conservative therapy ABERLE,EMMANUELLE S II MD Nov 27, 2017 11:44
[2017-11-27] MEDS: fentaNYL PF VIAL 100 MCG/2 ML VIAL IV PRN ×2 (11:59→14:49)
[2017-11-27] MEDS ORDERED: LIDOCAINE WITH 8.4% SOD BICARB 3 ML DISP.SYRIN. INJ ONE (12:00)
[2017-11-27] MEDS: THYROID,PORK 60 MG TABLET PO SCH ×2 (13:16→20:11)
[2017-11-27 15:00] VITALS: BP 107/62
[2017-11-27 15:46] LABS: BF CLARITY TURBID; BF COLOR YELLOW; BF SOURCE SYNOVIAL
[2017-11-27 15:47] LABS: BF MON % 20 %; BF PMN % 80 %; BF RBC COUNT 897 /cmm; BF WBC COUNT 17100 /cmm
--- NOTE | 2017-11-27 18:03 | RAD ---
EXAM: Fluoroscopic imaging guidance for left hip joint aspiration DATE: 11/27/2017 9:53 AM COMPARISON: None pertinent INDICATION: left hip pain-clinical suspicion for septic joint TECHNIQUE: The patient was informed of the indications and alternatives for this procedure as well as risks and benefits. No immediate contraindication identified. The patient provided informed, written consent. Laterality was confirmed by the entire team following a time out. Following initial fluoroscopic localization, a suitable area was sterilely prepped and draped. Local anesthesia was administered with 1% xylocaine. With intermittent fluoroscopic, observation, an 18-gauge spinal needle was advanced into the left hip joint space with spontaneous aspiration of 13 cc straw-colored fluid fluid. No immediate complication. Hemostasis with local pressure. Patient was discharged from the radiology department in good position. Specimens were transported to the lab. Preforming physicians: Dr. Chaitanya Keyes Blood loss: 0 cc Fluoroscopy time: <0.1 minutes Fluoroscopy spot images: 0 Fluoroscopy save images: 1 IMPRESSION: Successful aspiration of the left hip joint per clinical request. Electronically signed by: David Keyes MD (11/27/2017 5:59 PM) [facility]
[2017-11-27 19:00] VITALS: BP 123/57
--- NOTE | 2017-11-27 20:17 | PDOC2 ---
CONSULT Date of Consult Date of Consult DATE: 11/27/17 TIME: 20:11 Reason for Consult Reason for Consult: left hip pain Referring Physician Referring Physician: Gopal Identification/Chief Complaint Chief Complaint Left groin pain Source Source: Patient History of Present Illness Reason for Visit: Patient noted left groin pain that started since Saturday. No particular change in her activities, Saturday was spent at a desk and hip pain has been slowly progressive since Saturday. Worse with any ROM at hip, coughing, sitting, walking. Pain radiates to knee. No hx trauma. No fevers/chills. No back pain. Pain is a little better at rest Past Medical History Cardiovascular: HTN GI: GERD Musculoskeletal: Other (RA and psoriatic arthritis) Rheumatologic: Rheumatoid arthritis Endocrine: Hypothyroidism Past Surgical History Past Surgical History: Appendectomy, Tonsillectomy, Hysterectomy, Other Family History Family History: Cancer, Diabetes, Heart Disease, Osteo Arthiritis, Stroke Social History No ALCOHOL: rare Drugs: None Current Problem List Problem List Problems Medical Problems: (1) Left hip pain Status: Acute Current Medications Current Medications Current Medications Oxycodone/ Acetaminophen (Percocet 5/325) 1 tab 1X ONCE PO Last administered on 11/26/17at 19:37; Start 11/26/17 at 17:45; Stop 11/26/17 at 17:46; Status DC Diazepam (Valium) 5 mg 1X ONCE PO Last administered on 11/26/17at 19:37; Start 11/26/17 at 17:45; Stop 11/26/17 at 17:46; Status DC Ondansetron HCl (Zofran) 4 mg PRN Q8HRS PRN IV NAUSEA/VOMITING; Start 11/26/17 at 20:45; Stop 11/27/17 at 08:22; Status DC Acetaminophen (Tylenol) 650 mg PRN Q4HRS PRN PO FEVER Last administered on 11/27at 18:17; Start 11/26/17 at 20:45; Stop 11/27/17 at 20:44 Oxycodone HCl (Roxicodone) 10 mg PRN Q6HRS PRN PO PAIN Last administered on at 10:56; Start 11/26/17 at 20:45; Stop 11/27/17 at 16:50; Status DC Ondansetron HCl (Zofran) 4 mg PRN Q6HRS PRN IV NAUSEA/VOMITING; Start 11/27/17 at 08:30 Allopurinol (Zyloprim) 300 mg DAILY PO Last administered on 11/27/17 10:13; Start 11/27/17 at 09:00 Amlodipine Besylate (Norvasc) 5 mg DAILY PO Last administered on 11/27/17 10: 12; Start 11/27/17 at 09:00 Carbamazepine (TEGretol) 200 mg BID PO Last administered on 11/27/17 10:12; Start 11/27/17 at 09:00 Cetirizine HCl (ZyrTEC) 10 mg DAILY PO ; Start 11/27/17 at 09:00 Folic Acid (Folic Acid) 1 mg DAILY PO Last administered on 11/27/17 10:11; Start 11/27/17 at 09:00 Furosemide (Lasix) 40 mg BID92 PO Last administered on 11/27/17 10:08; Start 11/27/17 at 09:00; Stop 11/27/17 at 15:25; Status DC Nortriptyline HCl (Pamelor) 25 mg QID PO Last administered on 11/27/17 16:53; Start 11/27/17 at 09:00; Stop 11/28/17 at 09:00 Thyroid (May Thyroid) 60 mg BID PO Last administered on 11/27/17at 13:16; Start 11/27/17 at 09:00 Diphenhydramine HCl (Benadryl) 25 mg QHS PO ; Start 11/27/17 at 21:00 Estradiol (Estrace) 1 mg DAILY PO Last administered on 11/26/17at 10:00; Start 11/27/17 at 10:00 Non-Formulary Medication (Loratadine ) 10 mg DAILY PO ; Start 11/27/17 at 09:00 ; Stop 11/27/17 at 09:00; Status DC Multivitamins (Thera M Plus) 1 tab BID PO Last administered on 11/27/17at 10:12 ; Start 11/27/17 at 09:00 Fentanyl Citrate (Fentanyl 2ml Vial) 50 mcg PRN Q2HR PRN IV PAIN Last administered on 11/27/17at 14:49; Start 11/27/17 at 08:30 Lidocaine/Sodium Bicarbonate (Buffered Lidocaine 1%) 9 ml 1X ONCE INJ Last administered on 11/27/17at 12:57; Start 11/27/17 at 12:00; Stop 11/27/17 at 12:01 ; Status DC Furosemide (Lasix) 40 mg DAILY PO ; Start 11/28/17 at 09:00 Nortriptyline HCl (Pamelor) 100 mg HS PO ; Start 11/28/17 at 21:00 Oxycodone HCl (Roxicodone) 10 mg PRN Q3HRS PRN PO PAIN; Start 11/27/17 at 17:00 Active Scripts Active Reported Loratadine 10 Mg Tablet 10 Mg PO DAILY Multivitamins (Multivitamin) 1 Each Tablet 1 Tab PO BID Furosemide 40 Mg Tablet 40 Mg PO BID Folic Acid 1 Mg Tablet 1 Mg PO DAILY Aspirin 81 Mg Tab.chew 1 Tab PO DAILY LAST DOSE GIVEN: DATE: 06/15/15 TIME: 09 AM NEXT DOSE DUE: DATE: 06/16/15 TIME: 09 AM Diphenhydramine Hcl 50 Mg Capsule 25 Mg PO HS take tonight Zyrtec (Cetirizine Hcl) 10 Mg Tablet 10 Mg PO LAST DOSE GIVEN: DATE: 06/15/15 TIME: 09 AM NEXT DOSE DUE: DATE: 06/16/15 TIME: 09 AM Methotrexate (Methotrexate Sodium) 2.5 Mg Tablet 2.5 Mg PO 2X/WEEK Not taken today, resume tomorrow Estradiol 1 Each Patch.tdsw 1 Mg TD DAILY none taken during hospital stay Carbamazepine 200 Mg Tablet 200 Mg PO BID LAST DOSE GIVEN: DATE: 06/15/15 TIME: 09 am NEXT DOSE DUE: DATE: 06/15/15 TIME: 09 PM Allopurinol 300 Mg Tablet 300 Mg PO DAILY LAST DOSE GIVEN: DATE: 06/15/15 TIME: 09 AM NEXT DOSE DUE: DATE: 06/16/15 TIME: 09 AM May Thyroid (Thyroid,Pork) 60 Mg Tablet 60 Mg PO BID LAST DOSE GIVEN: DATE: 06/15/15 TIME: 9 AM NEXT DOSE DUE: DATE:06/16/15 TIME: 9 PM Amlodipine Besylate 10 Mg Tablet 5 Mg PO DAILY none taken today, resume tomorrow 06/16/15 Nortriptyline Hcl 25 Mg Capsule 25 Mg PO QID LAST DOSE GIVEN: DATE: 06/15/15 TIME: 1 PM NEXT DOSE DUE: DATE: 06/15/15 TIME: 5 PM Allergies Allergies: Coded Allergies: Iodinated Contrast- Oral and IV Dye (Verified Allergy, Severe, SWELLING, ) Penicillins (Verified Allergy, Severe, RASH, 06/14/15) NSAIDS (Non-Steroidal Anti-Inflamma (Verified Allergy, Intermediate, ) cephalexin (Verified Allergy, Intermediate, 11/26/17) codeine (Verified Allergy, Intermediate, HEART PALPITATIONS, 06/14/15) erythromycin base (Verified Allergy, Intermediate, 11/26/17) hydrocodone (Verified Allergy, Intermediate, 11/26/17) ibuprofen (Verified Allergy, Intermediate, 11/26/17) indomethacin (Verified Allergy, Intermediate, 11/26/17) morphine (Verified Allergy, Intermediate, 11/26/17) pentazocine (Verified Allergy, Intermediate, 11/26/17) tetracycline (Verified Allergy, Intermediate, 11/26/17) gabapentin (Verified Adverse Reaction, Mild, JERKINESS, 06/14/15) ROS General: No: Chills, Night Sweats, Fatigue, Malaise, Appetite, Other PSYCHOLOGICAL ROS: No: Anxiety, Behavioral Disorder, Concentration difficultie , Decreased libido, Depression, Disorientation, Hallucinations, Hostility, Irritablity, Memory difficulties, Mood Swings, Obsessive thoughts, Physical abuse, Sexual abuse, Sleep disturbances, Suicidal ideation, Other Eyes: No Blurry vision, No Decreased vision, No Double vision, No Dry eyes, No Excessive tearing, No Eye Pain, No Itchy Eyes, No Loss of vision, No Photophobia , No Scotomata, No Uses contacts, No Uses glasses, No Other HEENT: No: Heacaches, Visual Changes, Hearing change, Nasal congestion, Nasal discharge, Oral lesions, Sinus pain, Sore Throat, Epistaxis, Sneezing, Snoring, Tinnitus, Vertigo, Vocal changes, Other ALLERGY AND IMMUNOLOGY: No: Hives, Insect Bite Sensitivity, Itchy/Watery Eyes, Nasal Congestion, Post Nasal Drip, Seasonal Allergies, Other Hematological and Lymphatic: No: Bleeding Problems, Blood Clots, Blood Transfusions, Brusing, Night Sweats, Pallor, Swollen Lymph Nodes, Other Respiratory: No: Cough, Hemoptysis, Orthopnea, Pleuritic Pain, Shortness of breath, SOB with excertion, Sputum Changes, Stridor, Tachypnea, Wheezing, Other Cardiovascular: No Chest Pain, No Palpitations, No Orthopnea, No Paroxysmal Noc. Dyspnea, No Edema, No Lt Headedness, No Other Gastrointestinal: No Nausea, No Vomiting, No Abdominal Pain, No Diarrhea, No Constipation, No Melena, No Hematochezia, No Other Genitourinary: No Dysuria, No Frequency, No Incontinence, No Hematuria, No Retention, No Discharge, No Urgency, No Pain, No Flank Pain, No Other, No , No , No , No , No , No , No Musculoskeletal: Yes Joint Pain Neurological: No Behavorial Changes, No Bowel/Bladder ControlChng, No Confusion , No Dizziness, No Gait Disturbance, No Headaches, No Impaired Coord/balance, No Memory Loss, No Numbness/Tingling, No Seizures, No Speech Problems, No Tremors, No Visual Changes, No Weakness, No Other Skin: No Dry Skin, No Eczema, No Hair Changes, No Lumps, No Mole Changes, No Mottling, No Nail Changes, No Pruritus, No Rash, No Skin Lesion Changes, No Other, No Acne Physical Exam General: Alert, Oriented X3 HEENT: Atraumatic, EOMI Lungs: Other (resp unlabored with symmetric chest rise) Abdomen: Soft, No tenderness Extremities: No edema, Normal pulses Neuro: Normal speech, Strength at 5/5 X4 ext, Sensation intact Psych/Mental Status: Mental status NL, Mood NL MUSCULOSKELETAL: Other (no tednerness laterally. Pain with any ROM, difficult to fully assess secondary to pain and gaurding) Vitals VITALS Vital Signs Date Time Temp Pulse Resp B/P (MAP) Pulse Ox O2 Delivery O2 Flow Rate FiO2 11/27/17 15:20 16 Room Air 11/27/17 15:00 98.1 82 107/62 (77) 95 98.1 11/27/17 12:30 2.0 Labs Labs Laboratory Tests Test 11/26/17 18:43 11/26/17 19:01 11/27/17 03:50 11/27/17 13:00 White Blood Count 9.1 x10^3/uL (4.0-11.0) 7.5 x10^3/uL (4.0-11.0) Red Blood Count 4.03 x10^6/uL (3.50-5.40) 3.69 x10^6/uL (3.50-5.40) Hemoglobin 12.8 g/dL (12.0-15.5) 11.9 g/dL (12.0-15.5) Hematocrit 38.4 % (36.0-47.0) 35.0 % (36.0-47.0) Mean Corpuscular Volume 95 fL (79-100) 95 fL (79-100) Mean Corpuscular Hemoglobin 32 pg (25-35) 32 pg (25-35) Mean Corpuscular Hemoglobin Concent 33 g/dL (31-37) 34 g/dL (31-37) Red Cell Distribution Width 14.1 % (11.5-14.5) 14.8 % (11.5-14.5) Platelet Count 155 x10^3/uL (140-400) 164 x10^3/uL (140-400) Neutrophils (%) (Auto) 73 % (31-73) 69 % (31-73) Lymphocytes (%) (Auto) 12 % (24-48) 16 % (24-48) Monocytes (%) (Auto) 12 % (0-9) 11 % (0-9) Eosinophils (%) (Auto) 3 % (0-3) 4 % (0-3) Basophils (%) (Auto) 0 % (0-3) 0 % (0-3) Neutrophils # (Auto) 6.7 x10^3uL (1.8-7.7) 5.2 x10^3uL (1.8-7.7) Lymphocytes # (Auto) 1.1 x10^3/uL (1.0-4.8) 1.2 x10^3/uL (1.0-4.8) Monocytes # (Auto) 1.1 x10^3/uL (0.0-1.1) 0.9 x10^3/uL (0.0-1.1) Eosinophils # (Auto) 0.3 x10^3/uL (0.0-0.7) 0.3 x10^3/uL (0.0-0.7) Basophils # (Auto) 0.0 x10^3/uL (0.0-0.2) 0.0 x10^3/uL (0.0-0.2) Erythrocyte Sedimentation Rate 63 (0-25) Sodium Level 140 mmol/L (136-145) 140 mmol/L (136-145) Potassium Level 3.3 mmol/L (3.5-5.1) 3.4 mmol/L (3.5-5.1) Chloride Level 101 mmol/L (98-107) 102 mmol/L (98-107) Carbon Dioxide Level 34 mmol/L (21-32) 34 mmol/L (21-32) Anion Gap 5 (6-14) 4 (6-14) Blood Urea Nitrogen 14 mg/dL (7-20) 16 mg/dL (7-20) Creatinine 0.7 mg/dL (0.6-1.0) 0.7 mg/dL (0.6-1.0) Estimated GFR (Cockcroft-Gault) 82.3 82.3 BUN/Creatinine Ratio 20 (6-20) 23 (6-20) Glucose Level 96 mg/dL (70-99) 91 mg/dL (70-99) Calcium Level 8.5 mg/dL (8.5-10.1) 8.5 mg/dL (8.5-10.1) Total Bilirubin 0.3 mg/dL (0.2-1.0) 0.4 mg/dL (0.2-1.0) Aspartate Amino Transf (AST/SGOT) 13 U/L (15-37) 14 U/L (15-37) Alanine Aminotransferase (ALT/SGPT) 34 U/L (14-59) 28 U/L (14-59) Alkaline Phosphatase 87 U/L (46-116) 77 U/L (46-116) C-Reactive Protein, Quantitative 131.5 mg/L (0-3.3) Total Protein 6.9 g/dL (6.4-8.2) 6.5 g/dL (6.4-8.2) Albumin 3.0 g/dL (3.4-5.0) 2.7 g/dL (3.4-5.0) Albumin/Globulin Ratio 0.8 (1.0-1.7) 0.7 (1.0-1.7) Urine Collection Type Unknown Urine Color Yellow Urine Clarity Clear Urine pH 7.0 Urine Specific [place] 1.015 Urine Protein Negative mg/dL (NEG-TRACE) Urine Glucose (UA) Negative mg/dL (NEG) Urine Ketones (Stick) Negative mg/dL (NEG) Urine Blood Moderate (NEG) Urine Nitrite Negative (NEG) Urine Bilirubin Negative (NEG) Urine Urobilinogen Dipstick 0.2 mg/dL (0.2 mg/dL) Urine Leukocyte Esterase Large (NEG) Urine RBC 3-5 /HPF (0-2) Urine WBC >40 /HPF (0-4) Urine Squamous Epithelial Cells Many /LPF Urine Bacteria Moderate /HPF (0-FEW) Body Fluid Source Synovial Body Fluid Color Yellow Body Fluid Clarity Turbid Body Fluid Nucleated Cells 56890 /cmm Body Fluid Mononuclear WBCs (%) 20 % Body Fluid Polymorphonuclear Cells 80 % Body Fluid Total RBCs Counted 897 /cmm Laboratory Tests Test 11/27/17 03:50 11/27/17 13:00 White Blood Count 7.5 x10^3/uL (4.0-11.0) Red Blood Count 3.69 x10^6/uL (3.50-5.40) Hemoglobin 11.9 g/dL (12.0-15.5) Hematocrit 35.0 % (36.0-47.0) Mean Corpuscular Volume 95 fL (79-100) Mean Corpuscular Hemoglobin 32 pg (25-35) Mean Corpuscular Hemoglobin Concent 34 g/dL (31-37) Red Cell Distribution Width 14.8 % (11.5-14.5) Platelet Count 164 x10^3/uL (140-400) Neutrophils (%) (Auto) 69 % (31-73) Lymphocytes (%) (Auto) 16 % (24-48) Monocytes (%) (Auto) 11 % (0-9) Eosinophils (%) (Auto) 4 % (0-3) Basophils (%) (Auto) 0 % (0-3) Neutrophils # (Auto) 5.2 x10^3uL (1.8-7.7) Lymphocytes # (Auto) 1.2 x10^3/uL (1.0-4.8) Monocytes # (Auto) 0.9 x10^3/uL (0.0-1.1) Eosinophils # (Auto) 0.3 x10^3/uL (0.0-0.7) Basophils # (Auto) 0.0 x10^3/uL (0.0-0.2) Sodium Level 140 mmol/L (136-145) Potassium Level 3.4 mmol/L (3.5-5.1) Chloride Level 102 mmol/L (98-107) Carbon Dioxide Level 34 mmol/L (21-32) Anion Gap 4 (6-14) Blood Urea Nitrogen 16 mg/dL (7-20) Creatinine 0.7 mg/dL (0.6-1.0) Estimated GFR (Cockcroft-Gault) 82.3 BUN/Creatinine Ratio 23 (6-20) Glucose Level 91 mg/dL (70-99) Calcium Level 8.5 mg/dL (8.5-10.1) Total Bilirubin 0.4 mg/dL (0.2-1.0) Aspartate Amino Transf (AST/SGOT) 14 U/L (15-37) Alanine Aminotransferase (ALT/SGPT) 28 U/L (14-59) Alkaline Phosphatase 77 U/L (46-116) Total Protein 6.5 g/dL (6.4-8.2) Albumin 2.7 g/dL (3.4-5.0) Albumin/Globulin Ratio 0.7 (1.0-1.7) Body Fluid Source Synovial Body Fluid Color Yellow Body Fluid Clarity Turbid Body Fluid Nucleated Cells 03910 /cmm Body Fluid Mononuclear WBCs (%) 20 % Body Fluid Polymorphonuclear Cells 80 % Body Fluid Total RBCs Counted 897 /cmm Images Images CT reviewed. DJD with effusion Assessment/Plan Assessment/Plan Hip aspiration performed, cell count not consistent with septic joint, although on immunomodulating RA meds will await Cxs activity as tolerated EMMANUELLE AMARO II, MD Nov 27, 2017 20:16
[2017-11-27] MEDS ORDERED: diphenhydrAMINE HCL 25 MG CAPSULE PO SCH (21:00)
[2017-11-27 23:00] VITALS: BP 116/62
--- NOTE | 2017-11-27 23:48 | CONS ---
DATE OF CONSULTATION: 11/27/2017 REQUESTING PHYSICIAN: Jayy Braxton M.D. REASON FOR CONSULTATION: Left hip pain and infusion. HISTORY OF PRESENT ILLNESS: This is a 71-year-old female with a history of rheumatoid arthritis, on Humira, who presented with severe left hip pain. The patient denies any trauma. The patient denies any twisting or turning; no incident. The patient is having pain going down into the leg from the left hip and thigh. The patient denies any tingling or numbness. Denies any incontinence. Denies any back pain. The patient has some night sweats, but no other fever. Denies any nausea, vomiting, diarrhea, chest pain, shortness of breath, abdominal pain, urinary symptoms or bowel symptoms. PAST MEDICAL HISTORY: Positive for rheumatoid arthritis. The patient is on Humira. The patient also has hypertension; gout; has had, I believe, gastric sleeve or some sort of surgery done and bilateral knee surgery done. SOCIAL HISTORY: Negative for smoking, alcohol or illicit drug use. ALLERGIES: LISTED ALLERGIC TO PENICILLIN, CEPHALOSPORINS, ERYTHROMYCIN AND TETRACYCLINE, ALL CAUSES HER TO HAVE DIARRHEA AND MAY BE RASH. REVIEW OF SYSTEMS: As per HPI. All other systems reviewed are negative. CURRENT MEDICATIONS: Reviewed. PHYSICAL EXAMINATION: GENERAL: Alert and oriented female, not in any distress. VITAL SIGNS: Stable, afebrile. HEENT: NAD. NECK: Supple. No JVP, no lymphadenopathy. LUNGS: Clear. HEART: S1, S2 regular. ABDOMEN: Benign. EXTREMITIES: No edema or cyanosis. SKIN EXAMINATION: Unremarkable, other than some venous insufficiency changes in the legs present. The patient's hip movement is painful. There is no erythema or induration seen or felt. NEUROLOGIC: The patient is neurologically intact. LABORATORY DATA: White count is normal. Her sed rate is 63. BUN and creatinine are normal. Urinalysis, more than [address] of the abdomen and pelvis had shown moderate left hip effusion with enhancement. IMPRESSION: 1. Left hip pain with effusion, rule out infection. 2. Rheumatoid arthritis, on Humira. 3. History of gout. 4. Hypertension. RECOMMENDATIONS: No antibiotics for now. Hip aspiration for bacterial, fungal and AFB stain and culture as well as cell count and crystal analysis. Supportive care. Discussion with the patient and the done at the bedside. Thank you very much, Dr. Braxton, for giving me the opportunity to participate in this patient's care. DARIN FABIAN MD DR: DHEERAJ/tristian JOB#: [id number] / [id number] KRISTI
[2017-11-28] MEDS: oxyCODONE IR 5 MG TABLET PO PRN ×4 (01:18→13:05)
[2017-11-28 03:00] VITALS: BP 111/57
[2017-11-28 04:46] LABS: BASO % 0 % (0-3); EOS # 0.2 x10^3/uL (0.0-0.7); EOS % 5 % (0-3); HEMATOCRIT 35.6 % (36.0-47.0); HEMOGLOBIN 12.1 g/dL (12.0-15.5); LYMPH % 20 % (24-48); MEAN CORPUSCULAR HEMOGLOBIN 32 pg (25-35); MEAN CORPUSCULAR HGB CONC 34 g/dL (31-37); MEAN CORPUSCULAR VOLUME 94 fL (79-100); MONO # 0.6 x10^3/uL (0.0-1.1); MONO % 11 % (0-9); NEUT # 3.2 x10^3uL (1.8-7.7); NEUT % 64 % (31-73); PLATELET COUNT 137 x10^3/uL (140-400); RED BLOOD COUNT 3.78 x10^6/uL (3.50-5.40); RED CELL DISTRIBUTION WIDTH 14.2 % (11.5-14.5)
[2017-11-28 05:02] LABS: CALCIUM 8.2 mg/dL (8.5-10.1); CREATININE 0.7 mg/dL (0.6-1.0); GFR 82.3
[2017-11-28 05:05] LABS: POTASSIUM 2.8 mmol/L (3.5-5.1)
[2017-11-28] MEDS ORDERED: POTASSIUM CHLORIDE 20 MEQ TABLET.ER. PO ONE ×2 (06:00→12:00)
[2017-11-28 07:00] VITALS: BP 101/50
[2017-11-28] MEDS: THYROID,PORK 60 MG TABLET PO SCH (07:38)
--- NOTE | 2017-11-28 08:41 | PDOC ---
Infectious Disease Note Subjective Subjective feeling much better says ROS ROS no n/v/d/sob/fever hip pain is better Vital Sign Vital Signs Vital Signs Date Time Temp Pulse Resp B/P (MAP) Pulse Ox O2 Delivery O2 Flow Rate FiO2 11/28/17 07:00 97.5 85 20 101/50 (67) 90 Room Air 97.5 11/28/17 02:18 2.0 Physical Exam PHYSICAL EXAM GENERAL: Alert and oriented female, not in any distress. VITAL SIGNS: Stable, afebrile. HEENT: NAD. NECK: Supple. No JVP, no lymphadenopathy. LUNGS: Clear. HEART: S1, S2 regular. ABDOMEN: Benign. EXTREMITIES: No edema or cyanosis. SKIN EXAMINATION: Unremarkable, other than some venous insufficiency changes in the legs present. The patient's hip movement is painful. There is no erythema or induration seen or felt. NEUROLOGIC: The patient is neurologically intact Labs Lab Laboratory Tests Test 11/27/17 13:00 11/28/17 04:00 Body Fluid Source Synovial Body Fluid Color Yellow Body Fluid Clarity Turbid Body Fluid Nucleated Cells 51341 /cmm Body Fluid Mononuclear WBCs (%) 20 % Body Fluid Polymorphonuclear Cells 80 % Body Fluid Total RBCs Counted 897 /cmm White Blood Count 5.0 x10^3/uL (4.0-11.0) Red Blood Count 3.78 x10^6/uL (3.50-5.40) Hemoglobin 12.1 g/dL (12.0-15.5) Hematocrit 35.6 % (36.0-47.0) Mean Corpuscular Volume 94 fL (79-100) Mean Corpuscular Hemoglobin 32 pg (25-35) Mean Corpuscular Hemoglobin Concent 34 g/dL (31-37) Red Cell Distribution Width 14.2 % (11.5-14.5) Platelet Count 137 x10^3/uL (140-400) Neutrophils (%) (Auto) 64 % (31-73) Lymphocytes (%) (Auto) 20 % (24-48) Monocytes (%) (Auto) 11 % (0-9) Eosinophils (%) (Auto) 5 % (0-3) Basophils (%) (Auto) 0 % (0-3) Neutrophils # (Auto) 3.2 x10^3uL (1.8-7.7) Lymphocytes # (Auto) 1.0 x10^3/uL (1.0-4.8) Monocytes # (Auto) 0.6 x10^3/uL (0.0-1.1) Eosinophils # (Auto) 0.2 x10^3/uL (0.0-0.7) Basophils # (Auto) 0.0 x10^3/uL (0.0-0.2) Sodium Level 137 mmol/L (136-145) Potassium Level 2.8 mmol/L (3.5-5.1) Chloride Level 100 mmol/L (98-107) Carbon Dioxide Level 32 mmol/L (21-32) Anion Gap 5 (6-14) Blood Urea Nitrogen 14 mg/dL (7-20) Creatinine 0.7 mg/dL (0.6-1.0) Estimated GFR (Cockcroft-Gault) 82.3 Glucose Level 87 mg/dL (70-99) Calcium Level 8.2 mg/dL (8.5-10.1) Micro Microbiology 11/26/17 Blood Culture - Preliminary, Resulted NO GROWTH AFTER 1 DAY jt fluid wbc [id number] Objective Assessment Left hip pain with effusion, [place] [id number] wbc less likely to have infection ( except that pt is on kishore) RA on kishore h/o Gout Plan Plan of Care no antibiotics for now hip aspiration for bacterial, fungal and afb stain and culture pending supportive care d/w pt , ok to d/c from ID stand point, but very important to have followup in 10-14 days to monitor culture results DARIN FABIAN MD Nov 28, 2017 08:41
[2017-11-28] MEDS ORDERED: FUROSEMIDE 40 MG TABLET. PO SCH (09:00)
[2017-11-28] MEDS: MULTIVITAMIN with MINERAL TABLET. PO SCH (09:10)
[2017-11-28] MEDS: ALLOPURINOL 300 MG TABLET. PO SCH (09:10)
[2017-11-28] MEDS: carBAMazepine 200 MG TABLET PO SCH (09:10)
[2017-11-28] MEDS: ESTRADIOL 1 MG TABLET. PO SCH (09:10)
[2017-11-28] MEDS: amLODIPine BESYLATE 5 MG TABLET PO SCH (09:11)
[2017-11-28] MEDS: CETIRIZINE HCL 10 MG TABLET. PO SCH (09:11)
[2017-11-28] MEDS: FOLIC ACID 1 MG TABLET. PO SCH (09:11)
[2017-11-28] MEDS: NORTRIPTYLINE 25 MG CAPSULE PO SCH (09:12)
--- NOTE | 2017-11-28 09:37 | PDOC ---
PROGRESS NOTES Chief Complaint Chief Complaint Left hip pain HTN GERD Rheumatoid arthritis Hypothyroidism History of Present Illness History of Present Illness Pt was sitting up in bed NAD Said she had a lot of relief from the hip aspiration and is feeling much better Discussed treatment plan with Niece and Pt bedside DW RN Vitals Vitals Vital Signs Date Time Temp Pulse Resp B/P (MAP) Pulse Ox O2 Delivery O2 Flow Rate FiO2 11/28/17 09:11 85 101/50 11/28/17 07:00 97.5 20 90 Room Air 97.5 11/28/17 02:18 2.0 Physical Exam Physical Exam GENERAL: Alert and oriented female, not in any distress. VITAL SIGNS: Stable, afebrile. HEENT: NAD. NECK: Supple. No JVP, no lymphadenopathy. LUNGS: Clear. HEART: S1, S2 regular. ABDOMEN: Benign. EXTREMITIES: No edema or cyanosis. SKIN EXAMINATION: Unremarkable, other than some venous insufficiency changes in the legs present. The patient's hip movement is painful. There is no erythema or induration seen or felt. NEUROLOGIC: The patient is neurologically intact General: Alert, Oriented X3 Heart: Regular rate, Other Lungs: Clear Abdomen: Soft, No tenderness Extremities: No edema, Normal pulses Skin: No rashes, No breakdown, No significant lesion Labs LABS Laboratory Tests Test 11/27/17 13:00 11/28/17 04:00 Body Fluid Source Synovial Body Fluid Color Yellow Body Fluid Clarity Turbid Body Fluid Nucleated Cells 98117 /cmm Body Fluid Mononuclear WBCs (%) 20 % Body Fluid Polymorphonuclear Cells 80 % Body Fluid Total RBCs Counted 897 /cmm White Blood Count 5.0 x10^3/uL (4.0-11.0) Red Blood Count 3.78 x10^6/uL (3.50-5.40) Hemoglobin 12.1 g/dL (12.0-15.5) Hematocrit 35.6 % (36.0-47.0) Mean Corpuscular Volume 94 fL (79-100) Mean Corpuscular Hemoglobin 32 pg (25-35) Mean Corpuscular Hemoglobin Concent 34 g/dL (31-37) Red Cell Distribution Width 14.2 % (11.5-14.5) Platelet Count 137 x10^3/uL (140-400) Neutrophils (%) (Auto) 64 % (31-73) Lymphocytes (%) (Auto) 20 % (24-48) Monocytes (%) (Auto) 11 % (0-9) Eosinophils (%) (Auto) 5 % (0-3) Basophils (%) (Auto) 0 % (0-3) Neutrophils # (Auto) 3.2 x10^3uL (1.8-7.7) Lymphocytes # (Auto) 1.0 x10^3/uL (1.0-4.8) Monocytes # (Auto) 0.6 x10^3/uL (0.0-1.1) Eosinophils # (Auto) 0.2 x10^3/uL (0.0-0.7) Basophils # (Auto) 0.0 x10^3/uL (0.0-0.2) Sodium Level 137 mmol/L (136-145) Potassium Level 2.8 mmol/L (3.5-5.1) Chloride Level 100 mmol/L (98-107) Carbon Dioxide Level 32 mmol/L (21-32) Anion Gap 5 (6-14) Blood Urea Nitrogen 14 mg/dL (7-20) Creatinine 0.7 mg/dL (0.6-1.0) Estimated GFR (Cockcroft-Gault) 82.3 Glucose Level 87 mg/dL (70-99) Calcium Level 8.2 mg/dL (8.5-10.1) Review of Systems Review of Systems CO hip pain denies N/V Assessment and Plan Assessmemt and Plan Left hip pain HTN GERD Rheumatoid arthritis Hypothyroidism Plan: PT/OT Labs Analgesics PRN Continue Home meds Replete K+ Probable DC home Comment Review of Relevant I have reviewed the following items kayy (where applicable) has been applied. Labs Laboratory Tests Test 11/26/17 18:43 11/26/17 19:01 11/27/17 03:50 11/27/17 13:00 White Blood Count 9.1 x10^3/uL (4.0-11.0) 7.5 x10^3/uL (4.0-11.0) Red Blood Count 4.03 x10^6/uL (3.50-5.40) 3.69 x10^6/uL (3.50-5.40) Hemoglobin 12.8 g/dL (12.0-15.5) 11.9 g/dL (12.0-15.5) Hematocrit 38.4 % (36.0-47.0) 35.0 % (36.0-47.0) Mean Corpuscular Volume 95 fL (79-100) 95 fL (79-100) Mean Corpuscular Hemoglobin 32 pg (25-35) 32 pg (25-35) Mean Corpuscular Hemoglobin Concent 33 g/dL (31-37) 34 g/dL (31-37) Red Cell Distribution Width 14.1 % (11.5-14.5) 14.8 % (11.5-14.5) Platelet Count 155 x10^3/uL (140-400) 164 x10^3/uL (140-400) Neutrophils (%) (Auto) 73 % (31-73) 69 % (31-73) Lymphocytes (%) (Auto) 12 % (24-48) 16 % (24-48) Monocytes (%) (Auto) 12 % (0-9) 11 % (0-9) Eosinophils (%) (Auto) 3 % (0-3) 4 % (0-3) Basophils (%) (Auto) 0 % (0-3) 0 % (0-3) Neutrophils # (Auto) 6.7 x10^3uL (1.8-7.7) 5.2 x10^3uL (1.8-7.7) Lymphocytes # (Auto) 1.1 x10^3/uL (1.0-4.8) 1.2 x10^3/uL (1.0-4.8) Monocytes # (Auto) 1.1 x10^3/uL (0.0-1.1) 0.9 x10^3/uL (0.0-1.1) Eosinophils # (Auto) 0.3 x10^3/uL (0.0-0.7) 0.3 x10^3/uL (0.0-0.7) Basophils # (Auto) 0.0 x10^3/uL (0.0-0.2) 0.0 x10^3/uL (0.0-0.2) Erythrocyte Sedimentation Rate 63 (0-25) Sodium Level 140 mmol/L (136-145) 140 mmol/L (136-145) Potassium Level 3.3 mmol/L (3.5-5.1) 3.4 mmol/L (3.5-5.1) Chloride Level 101 mmol/L (98-107) 102 mmol/L (98-107) Carbon Dioxide Level 34 mmol/L (21-32) 34 mmol/L (21-32) Anion Gap 5 (6-14) 4 (6-14) Blood Urea Nitrogen 14 mg/dL (7-20) 16 mg/dL (7-20) Creatinine 0.7 mg/dL (0.6-1.0) 0.7 mg/dL (0.6-1.0) Estimated GFR (Cockcroft-Gault) 82.3 82.3 BUN/Creatinine Ratio 20 (6-20) 23 (6-20) Glucose Level 96 mg/dL (70-99) 91 mg/dL (70-99) Calcium Level 8.5 mg/dL (8.5-10.1) 8.5 mg/dL (8.5-10.1) Total Bilirubin 0.3 mg/dL (0.2-1.0) 0.4 mg/dL (0.2-1.0) Aspartate Amino Transf (AST/SGOT) 13 U/L (15-37) 14 U/L (15-37) Alanine Aminotransferase (ALT/SGPT) 34 U/L (14-59) 28 U/L (14-59) Alkaline Phosphatase 87 U/L (46-116) 77 U/L (46-116) C-Reactive Protein, Quantitative 131.5 mg/L (0-3.3) Total Protein 6.9 g/dL (6.4-8.2) 6.5 g/dL (6.4-8.2) Albumin 3.0 g/dL (3.4-5.0) 2.7 g/dL (3.4-5.0) Albumin/Globulin Ratio 0.8 (1.0-1.7) 0.7 (1.0-1.7) Urine Collection Type Unknown Urine Color Yellow Urine Clarity Clear Urine pH 7.0 Urine Specific [place] 1.015 Urine Protein Negative mg/dL (NEG-TRACE) Urine Glucose (UA) Negative mg/dL (NEG) Urine Ketones (Stick) Negative mg/dL (NEG) Urine Blood Moderate (NEG) Urine Nitrite Negative (NEG) Urine Bilirubin Negative (NEG) Urine Urobilinogen Dipstick 0.2 mg/dL (0.2 mg/dL) Urine Leukocyte Esterase Large (NEG) Urine RBC 3-5 /HPF (0-2) Urine WBC >40 /HPF (0-4) Urine Squamous Epithelial Cells Many /LPF Urine Bacteria Moderate /HPF (0-FEW) Body Fluid Source Synovial Body Fluid Color Yellow Body Fluid Clarity Turbid Body Fluid Nucleated Cells 57258 /cmm Body Fluid Mononuclear WBCs (%) 20 % Body Fluid Polymorphonuclear Cells 80 % Body Fluid Total RBCs Counted 897 /cmm Test 11/28/17 04:00 White Blood Count 5.0 x10^3/uL (4.0-11.0) Red Blood Count 3.78 x10^6/uL (3.50-5.40) Hemoglobin 12.1 g/dL (12.0-15.5) Hematocrit 35.6 % (36.0-47.0) Mean Corpuscular Volume 94 fL (79-100) Mean Corpuscular Hemoglobin 32 pg (25-35) Mean Corpuscular Hemoglobin Concent 34 g/dL (31-37) Red Cell Distribution Width 14.2 % (11.5-14.5) Platelet Count 137 x10^3/uL (140-400) Neutrophils (%) (Auto) 64 % (31-73) Lymphocytes (%) (Auto) 20 % (24-48) Monocytes (%) (Auto) 11 % (0-9) Eosinophils (%) (Auto) 5 % (0-3) Basophils (%) (Auto) 0 % (0-3) Neutrophils # (Auto) 3.2 x10^3uL (1.8-7.7) Lymphocytes # (Auto) 1.0 x10^3/uL (1.0-4.8) Monocytes # (Auto) 0.6 x10^3/uL (0.0-1.1) Eosinophils # (Auto) 0.2 x10^3/uL (0.0-0.7) Basophils # (Auto) 0.0 x10^3/uL (0.0-0.2) Sodium Level 137 mmol/L (136-145) Potassium Level 2.8 mmol/L (3.5-5.1) Chloride Level 100 mmol/L (98-107) Carbon Dioxide Level 32 mmol/L (21-32) Anion Gap 5 (6-14) Blood Urea Nitrogen 14 mg/dL (7-20) Creatinine 0.7 mg/dL (0.6-1.0) Estimated GFR (Cockcroft-Gault) 82.3 Glucose Level 87 mg/dL (70-99) Calcium Level 8.2 mg/dL (8.5-10.1) Laboratory Tests Test 11/27/17 13:00 11/28/17 04:00 Body Fluid Source Synovial Body Fluid Color Yellow Body Fluid Clarity Turbid Body Fluid Nucleated Cells 78701 /cmm Body Fluid Mononuclear WBCs (%) 20 % Body Fluid Polymorphonuclear Cells 80 % Body Fluid Total RBCs Counted 897 /cmm White Blood Count 5.0 x10^3/uL (4.0-11.0) Red Blood Count 3.78 x10^6/uL (3.50-5.40) Hemoglobin 12.1 g/dL (12.0-15.5) Hematocrit 35.6 % (36.0-47.0) Mean Corpuscular Volume 94 fL (79-100) Mean Corpuscular Hemoglobin 32 pg (25-35) Mean Corpuscular Hemoglobin Concent 34 g/dL (31-37) Red Cell Distribution Width 14.2 % (11.5-14.5) Platelet Count 137 x10^3/uL (140-400) Neutrophils (%) (Auto) 64 % (31-73) Lymphocytes (%) (Auto) 20 % (24-48) Monocytes (%) (Auto) 11 % (0-9) Eosinophils (%) (Auto) 5 % (0-3) Basophils (%) (Auto) 0 % (0-3) Neutrophils # (Auto) 3.2 x10^3uL (1.8-7.7) Lymphocytes # (Auto) 1.0 x10^3/uL (1.0-4.8) Monocytes # (Auto) 0.6 x10^3/uL (0.0-1.1) Eosinophils # (Auto) 0.2 x10^3/uL (0.0-0.7) Basophils # (Auto) 0.0 x10^3/uL (0.0-0.2) Sodium Level 137 mmol/L (136-145) Potassium Level 2.8 mmol/L (3.5-5.1) Chloride Level 100 mmol/L (98-107) Carbon Dioxide Level 32 mmol/L (21-32) Anion Gap 5 (6-14) Blood Urea Nitrogen 14 mg/dL (7-20) Creatinine 0.7 mg/dL (0.6-1.0) Estimated GFR (Cockcroft-Gault) 82.3 Glucose Level 87 mg/dL (70-99) Calcium Level 8.2 mg/dL (8.5-10.1) Microbiology 11/27/17 Blood Culture - Preliminary, Resulted NO GROWTH AFTER 1 DAY Medications Current Medications Oxycodone/ Acetaminophen (Percocet 5/325) 1 tab 1X ONCE PO Last administered on 11/26/17at 19:37; Start 11/26/17 at 17:45; Stop 11/26/17 at 17:46; Status DC Diazepam (Valium) 5 mg 1X ONCE PO Last administered on 11/26/17at 19:37; Start 11/26/17 at 17:45; Stop 11/26/17 at 17:46; Status DC Ondansetron HCl (Zofran) 4 mg PRN Q8HRS PRN IV NAUSEA/VOMITING; Start 11/26/17 at 20:45; Stop 11/27/17 at 08:22; Status DC Acetaminophen (Tylenol) 650 mg PRN Q4HRS PRN PO FEVER Last administered on 11/27at 18:17; Start 11/26/17 at 20:45; Stop 11/27/17 at 20:44; Status DC Oxycodone HCl (Roxicodone) 10 mg PRN Q6HRS PRN PO PAIN Last administered on at 10:56; Start 11/26/17 at 20:45; Stop 11/27/17 at 16:50; Status DC Ondansetron HCl (Zofran) 4 mg PRN Q6HRS PRN IV NAUSEA/VOMITING; Start 11/27/17 at 08:30 Allopurinol (Zyloprim) 300 mg DAILY PO Last administered on 11/28/17at 09:10; Start 11/27/17 at 09:00 Amlodipine Besylate (Norvasc) 5 mg DAILY PO Last administered on 8/16/18at 09: 11; Start 11/27/17 at 09:00 Carbamazepine (TEGretol) 200 mg BID PO Last administered on 11/28/17 09:10; Start 11/27/17 at 09:00 Cetirizine HCl (ZyrTEC) 10 mg DAILY PO Last administered on 11/28/17 09:11; Start 11/27/17 at 09:00 Folic Acid (Folic Acid) 1 mg DAILY PO Last administered on 11/28/17 09:11; Start 11/27/17 at 09:00 Furosemide (Lasix) 40 mg BID92 PO Last administered on 11/27/17 10:08; Start 11/27/17 at 09:00; Stop 11/27/17 at 15:25; Status DC Nortriptyline HCl (Pamelor) 25 mg QID PO Last administered on 11/27/17 20:12; Start 11/27/17 at 09:00; Stop 11/28/17 at 09:00; Status DC Thyroid ([place] Thyroid) 60 mg BID PO Last administered on 11/28/17 07:38; Start 11/27/17 at 09:00 Diphenhydramine HCl (Benadryl) 25 mg QHS PO Last administered on 11/27/17 20: 12; Start 11/27/17 at 21:00 Estradiol (Estrace) 1 mg DAILY PO Last administered on 11/28/17 09:10; Start 11/27/17 at 10:00 Non-Formulary Medication (Loratadine ) 10 mg DAILY PO ; Start 11/27/17 at 09:00 ; Stop 11/27/17 at 09:00; Status DC Multivitamins (Thera M Plus) 1 tab BID PO Last administered on 11/28/17 09:10 ; Start 11/27/17 at 09:00 Fentanyl Citrate (Fentanyl 2ml Vial) 50 mcg PRN Q2HR PRN IV PAIN Last administered on 11/27/17 14:49; Start 11/27/17 at 08:30 Lidocaine/Sodium Bicarbonate (Buffered Lidocaine 1%) 9 ml 1X ONCE INJ Last administered on 11/27/17 12:57; Start 11/27/17 at 12:00; Stop 11/27/17 at 12:01 ; Status DC Furosemide (Lasix) 40 mg DAILY PO ; Start 11/28/17 at 09:00 Nortriptyline HCl (Pamelor) 100 mg HS PO ; Start 11/28/17 at 21:00 Oxycodone HCl (Roxicodone) 10 mg PRN Q3HRS PRN PO PAIN Last administered on at 05:50; Start 11/27/17 at 17:00 Potassium Chloride (Klor-Con) 40 meq 1X ONCE PO Last administered on at 05:49; Start 11/28/17 at 06:00; Stop 11/28/17 at 06:01; Status DC Potassium Chloride (Klor-Con) 40 meq 1X ONCE PO ; Start 11/28/17 at 12:00; Stop 11/28/17 at 12:01 Active Scripts Active Reported Loratadine 10 Mg Tablet 10 Mg PO DAILY Multivitamins (Multivitamin) 1 Each Tablet 1 Tab PO BID Furosemide 40 Mg Tablet 40 Mg PO BID Folic Acid 1 Mg Tablet 1 Mg PO DAILY Aspirin 81 Mg Tab.chew 1 Tab PO DAILY LAST DOSE GIVEN: DATE: 06/15/15 TIME: 09 AM NEXT DOSE DUE: DATE: 06/16/15 TIME: 09 AM Diphenhydramine Hcl 50 Mg Capsule 25 Mg PO HS take tonight Zyrtec (Cetirizine Hcl) 10 Mg Tablet 10 Mg PO LAST DOSE GIVEN: DATE: 06/15/15 TIME: 09 AM NEXT DOSE DUE: DATE: 06/16/15 TIME: 09 AM Methotrexate (Methotrexate Sodium) 2.5 Mg Tablet 2.5 Mg PO 2X/WEEK Not taken today, resume tomorrow Estradiol 1 Each Patch.tdsw 1 Mg TD DAILY none taken during hospital stay Carbamazepine 200 Mg Tablet 200 Mg PO BID LAST DOSE GIVEN: DATE: 06/15/15 TIME: 09 am NEXT DOSE DUE: DATE: 06/15/15 TIME: 09 PM Allopurinol 300 Mg Tablet 300 Mg PO DAILY LAST DOSE GIVEN: DATE: 06/15/15 TIME: 09 AM NEXT DOSE DUE: DATE: 06/16/15 TIME: 09 AM [place] Thyroid (Thyroid,Pork) 60 Mg Tablet 60 Mg PO BID LAST DOSE GIVEN: DATE: 06/15/15 TIME: 9 AM NEXT DOSE DUE: DATE:06/16/15 TIME: 9 PM Amlodipine Besylate 10 Mg Tablet 5 Mg PO DAILY none taken today, resume tomorrow 06/16/15 Nortriptyline Hcl 25 Mg Capsule 25 Mg PO QID LAST DOSE GIVEN: DATE: 06/15/15 TIME: 1 PM NEXT DOSE DUE: DATE: 06/15/15 TIME: 5 PM Vitals/I & O Vital Sign - Last 24 Hours 11/27/17 11/27/17 11/27/17 11/27/17 10:12 10:56 11:00 11:59 Temp 97.7 97.7 Pulse 85 73 Resp 18 14 18 B/P (MAP) 112/63 123/82 (96) Pulse Ox 94 O2 Delivery Nasal Cannula Nasal Cannula Nasal Cannula O2 Flow Rate 2.0 2.0 2.0 11/27/17 11/27/17 11/27/17 11/27/17 12:00 12:30 14:49 15:00 Temp 98.1 98.1 Pulse 82 Resp 18 16 16 B/P (MAP) 107/62 (77) Pulse Ox 95 O2 Delivery Nasal Cannula Room Air Room Air O2 Flow Rate 2.0 2.0 11/27/17 11/27/17 11/27/17 11/27/17 15:20 19:00 20:00 20:12 Temp 98.1 98.1 Pulse 79 Resp 16 18 B/P (MAP) 123/57 (79) Pulse Ox 92 O2 Delivery Room Air Room Air Nasal Cannula Room Air O2 Flow Rate 2.0 11/27/17 11/28/17 11/28/17 11/28/17 23:00 01:18 02:18 03:00 Temp 98.1 97.9 98.1 97.9 Pulse 84 75 Resp 18 18 B/P (MAP) 116/62 (80) 111/57 (75) Pulse Ox 92 92 O2 Delivery Room Air Nasal Cannula Nasal Cannula Room Air O2 Flow Rate 2.0 2.0 11/28/17 11/28/17 11/28/17 05:50 07:00 09:11 Temp 97.5 97.5 Pulse 85 85 Resp 20 B/P (MAP) 101/50 (67) 101/50 Pulse Ox 90 O2 Delivery Room Air Room Air ABHAY CHOUDHURY III DO Nov 28, 2017 09:37
--- NOTE | 2017-11-28 09:47 | PDOC ---
ORTHO PROGRESS NOTES Subjective She tells me her hip is feeling much better today. Vitals Vital Signs Date Time Temp Pulse Resp B/P (MAP) Pulse Ox O2 Delivery O2 Flow Rate FiO2 11/28/17 09:11 85 101/50 11/28/17 07:00 97.5 20 90 Room Air 97.5 11/28/17 02:18 2.0 Labs Laboratory Tests Test 11/26/17 18:43 11/26/17 19:01 11/27/17 03:50 11/27/17 13:00 White Blood Count 9.1 x10^3/uL (4.0-11.0) 7.5 x10^3/uL (4.0-11.0) Red Blood Count 4.03 x10^6/uL (3.50-5.40) 3.69 x10^6/uL (3.50-5.40) Hemoglobin 12.8 g/dL (12.0-15.5) 11.9 g/dL (12.0-15.5) Hematocrit 38.4 % (36.0-47.0) 35.0 % (36.0-47.0) Mean Corpuscular Volume 95 fL (79-100) 95 fL (79-100) Mean Corpuscular Hemoglobin 32 pg (25-35) 32 pg (25-35) Mean Corpuscular Hemoglobin Concent 33 g/dL (31-37) 34 g/dL (31-37) Red Cell Distribution Width 14.1 % (11.5-14.5) 14.8 % (11.5-14.5) Platelet Count 155 x10^3/uL (140-400) 164 x10^3/uL (140-400) Neutrophils (%) (Auto) 73 % (31-73) 69 % (31-73) Lymphocytes (%) (Auto) 12 % (24-48) 16 % (24-48) Monocytes (%) (Auto) 12 % (0-9) 11 % (0-9) Eosinophils (%) (Auto) 3 % (0-3) 4 % (0-3) Basophils (%) (Auto) 0 % (0-3) 0 % (0-3) Neutrophils # (Auto) 6.7 x10^3uL (1.8-7.7) 5.2 x10^3uL (1.8-7.7) Lymphocytes # (Auto) 1.1 x10^3/uL (1.0-4.8) 1.2 x10^3/uL (1.0-4.8) Monocytes # (Auto) 1.1 x10^3/uL (0.0-1.1) 0.9 x10^3/uL (0.0-1.1) Eosinophils # (Auto) 0.3 x10^3/uL (0.0-0.7) 0.3 x10^3/uL (0.0-0.7) Basophils # (Auto) 0.0 x10^3/uL (0.0-0.2) 0.0 x10^3/uL (0.0-0.2) Erythrocyte Sedimentation Rate 63 (0-25) Sodium Level 140 mmol/L (136-145) 140 mmol/L (136-145) Potassium Level 3.3 mmol/L (3.5-5.1) 3.4 mmol/L (3.5-5.1) Chloride Level 101 mmol/L (98-107) 102 mmol/L (98-107) Carbon Dioxide Level 34 mmol/L (21-32) 34 mmol/L (21-32) Anion Gap 5 (6-14) 4 (6-14) Blood Urea Nitrogen 14 mg/dL (7-20) 16 mg/dL (7-20) Creatinine 0.7 mg/dL (0.6-1.0) 0.7 mg/dL (0.6-1.0) Estimated GFR (Cockcroft-Gault) 82.3 82.3 BUN/Creatinine Ratio 20 (6-20) 23 (6-20) Glucose Level 96 mg/dL (70-99) 91 mg/dL (70-99) Calcium Level 8.5 mg/dL (8.5-10.1) 8.5 mg/dL (8.5-10.1) Total Bilirubin 0.3 mg/dL (0.2-1.0) 0.4 mg/dL (0.2-1.0) Aspartate Amino Transf (AST/SGOT) 13 U/L (15-37) 14 U/L (15-37) Alanine Aminotransferase (ALT/SGPT) 34 U/L (14-59) 28 U/L (14-59) Alkaline Phosphatase 87 U/L (46-116) 77 U/L (46-116) C-Reactive Protein, Quantitative 131.5 mg/L (0-3.3) Total Protein 6.9 g/dL (6.4-8.2) 6.5 g/dL (6.4-8.2) Albumin 3.0 g/dL (3.4-5.0) 2.7 g/dL (3.4-5.0) Albumin/Globulin Ratio 0.8 (1.0-1.7) 0.7 (1.0-1.7) Urine Collection Type Unknown Urine Color Yellow Urine Clarity Clear Urine pH 7.0 Urine Specific [place] 1.015 Urine Protein Negative mg/dL (NEG-TRACE) Urine Glucose (UA) Negative mg/dL (NEG) Urine Ketones (Stick) Negative mg/dL (NEG) Urine Blood Moderate (NEG) Urine Nitrite Negative (NEG) Urine Bilirubin Negative (NEG) Urine Urobilinogen Dipstick 0.2 mg/dL (0.2 mg/dL) Urine Leukocyte Esterase Large (NEG) Urine RBC 3-5 /HPF (0-2) Urine WBC >40 /HPF (0-4) Urine Squamous Epithelial Cells Many /LPF Urine Bacteria Moderate /HPF (0-FEW) Body Fluid Source Synovial Body Fluid Color Yellow Body Fluid Clarity Turbid Body Fluid Nucleated Cells 32443 /cmm Body Fluid Mononuclear WBCs (%) 20 % Body Fluid Polymorphonuclear Cells 80 % Body Fluid Total RBCs Counted 897 /cmm Test 11/28/17 04:00 White Blood Count 5.0 x10^3/uL (4.0-11.0) Red Blood Count 3.78 x10^6/uL (3.50-5.40) Hemoglobin 12.1 g/dL (12.0-15.5) Hematocrit 35.6 % (36.0-47.0) Mean Corpuscular Volume 94 fL (79-100) Mean Corpuscular Hemoglobin 32 pg (25-35) Mean Corpuscular Hemoglobin Concent 34 g/dL (31-37) Red Cell Distribution Width 14.2 % (11.5-14.5) Platelet Count 137 x10^3/uL (140-400) Neutrophils (%) (Auto) 64 % (31-73) Lymphocytes (%) (Auto) 20 % (24-48) Monocytes (%) (Auto) 11 % (0-9) Eosinophils (%) (Auto) 5 % (0-3) Basophils (%) (Auto) 0 % (0-3) Neutrophils # (Auto) 3.2 x10^3uL (1.8-7.7) Lymphocytes # (Auto) 1.0 x10^3/uL (1.0-4.8) Monocytes # (Auto) 0.6 x10^3/uL (0.0-1.1) Eosinophils # (Auto) 0.2 x10^3/uL (0.0-0.7) Basophils # (Auto) 0.0 x10^3/uL (0.0-0.2) Sodium Level 137 mmol/L (136-145) Potassium Level 2.8 mmol/L (3.5-5.1) Chloride Level 100 mmol/L (98-107) Carbon Dioxide Level 32 mmol/L (21-32) Anion Gap 5 (6-14) Blood Urea Nitrogen 14 mg/dL (7-20) Creatinine 0.7 mg/dL (0.6-1.0) Estimated GFR (Cockcroft-Gault) 82.3 Glucose Level 87 mg/dL (70-99) Calcium Level 8.2 mg/dL (8.5-10.1) Laboratory Tests Test 11/27/17 13:00 11/28/17 04:00 Body Fluid Source Synovial Body Fluid Color Yellow Body Fluid Clarity Turbid Body Fluid Nucleated Cells 66459 /cmm Body Fluid Mononuclear WBCs (%) 20 % Body Fluid Polymorphonuclear Cells 80 % Body Fluid Total RBCs Counted 897 /cmm White Blood Count 5.0 x10^3/uL (4.0-11.0) Red Blood Count 3.78 x10^6/uL (3.50-5.40) Hemoglobin 12.1 g/dL (12.0-15.5) Hematocrit 35.6 % (36.0-47.0) Mean Corpuscular Volume 94 fL (79-100) Mean Corpuscular Hemoglobin 32 pg (25-35) Mean Corpuscular Hemoglobin Concent 34 g/dL (31-37) Red Cell Distribution Width 14.2 % (11.5-14.5) Platelet Count 137 x10^3/uL (140-400) Neutrophils (%) (Auto) 64 % (31-73) Lymphocytes (%) (Auto) 20 % (24-48) Monocytes (%) (Auto) 11 % (0-9) Eosinophils (%) (Auto) 5 % (0-3) Basophils (%) (Auto) 0 % (0-3) Neutrophils # (Auto) 3.2 x10^3uL (1.8-7.7) Lymphocytes # (Auto) 1.0 x10^3/uL (1.0-4.8) Monocytes # (Auto) 0.6 x10^3/uL (0.0-1.1) Eosinophils # (Auto) 0.2 x10^3/uL (0.0-0.7) Basophils # (Auto) 0.0 x10^3/uL (0.0-0.2) Sodium Level 137 mmol/L (136-145) Potassium Level 2.8 mmol/L (3.5-5.1) Chloride Level 100 mmol/L (98-107) Carbon Dioxide Level 32 mmol/L (21-32) Anion Gap 5 (6-14) Blood Urea Nitrogen 14 mg/dL (7-20) Creatinine 0.7 mg/dL (0.6-1.0) Estimated GFR (Cockcroft-Gault) 82.3 Glucose Level 87 mg/dL (70-99) Calcium Level 8.2 mg/dL (8.5-10.1) Notes Hip aspiration reviewed. Cultures pending. She is awake and alert in bed. Improved range of motion at her hip. Assessment and Plan I think from my standpoint, she could be discharged. I think there is a very low probability that this is a septic joint. We will follow up on cultures as they become available. I did discuss her care with Drs. Martins and Gopal today. EMMANUELLE AMARO II, MD Nov 28, 2017 09:47
[2017-11-28 11:00] VITALS: BP 114/58
[2017-11-28] MEDS ORDERED: MAGNESIUM HYDROXIDE 2,400 MG/30 ML ORAL.SUSP. PO PRN (11:30)
[2017-11-28] MEDS ORDERED: DOCUSATE SODIUM 100 MG CAPSULE. PO SCH (12:00)
[2017-11-28] MEDS ORDERED: NORTRIPTYLINE 25 MG CAPSULE PO SCH (21:00)
--- NOTE | 2017-12-03 11:27 | DS ---
DATE OF DISCHARGE: 11/28/2017 ADMISSION DIAGNOSES: Fall with left hip pain and possible septic joint. DISCHARGE DIAGNOSES: Resolving hip pain status post aspiration of the left hip that was negative for infection. HOSPITAL COURSE: The patient is a pleasant 71-year-old female presented with hip pain. She had fallen. We were concerned that there was some fluid in the hip and could be infected. She was admitted. We consulted Infectious Disease and Orthopedics. We did drain the hip. Everything appeared to be negative. She was doing well. We discharged to home with very close outpatient followup. DISPOSITION: Home. ACTIVITY: As tolerated. DIET: Low sodium. MEDICATIONS: Please see the MRAD. TOTAL TIME: 34 minutes. ABHAY CHOUDHURY DO DR: PIERO/tristian JOB#: [id number] / [id number]
== END 2017-11-28 13:25 | disposition home or self-care (01) | DRG 564 ==
LOC: ER 16:41 → 4 NORTH 19:45
PROVIDERS: ADMIT Family Medicine; ATTEND Family Medicine
PROC: 0S9B3ZX Drainage of Left Hip Joint, Percutaneous Approach, Diagnostic (ICD-10-PCS; principal; 2017-11-27)
PROC: BQ111ZZ Fluoroscopy of Left Hip using Low Osmolar Contrast (ICD-10-PCS; 2017-11-27)
DX: M25.452 Effusion, left hip (principal); J96.20 Acute and chronic respiratory failure, unspecified whether with hypoxia or hypercapnia; M06.9 Rheumatoid arthritis, unspecified; E03.9 Hypothyroidism, unspecified; I10 Essential (primary) hypertension; K21.9 Gastro-esophageal reflux disease without esophagitis; K59.00 Constipation, unspecified; G89.29 Other chronic pain; L40.50 Arthropathic psoriasis, unspecified; M54.9 Dorsalgia, unspecified; Z79.899 Other long term (current) drug therapy; Z82.3 Family history of stroke; Z83.3 Family history of diabetes mellitus; Z87.891 Personal history of nicotine dependence; Z90.710 Acquired absence of both cervix and uterus; Z90.49 Acquired absence of other specified parts of digestive tract; Z90.89 Acquired absence of other organs; Z88.0 Allergy status to penicillin; Z88.8 Allergy status to other drugs, medicaments and biological substances; Z88.6 Allergy status to analgesic agent; Z88.1 Allergy status to other antibiotic agents; Z91.041 Radiographic dye allergy status; Z82.61 Family history of arthritis; Z80.9 Family history of malignant neoplasm, unspecified; Z82.49 Family history of ischemic heart disease and other diseases of the circulatory system; Z79.82 Long term (current) use of aspirin
CPT/HCPCS: 20605; 36415; 74176; 77002; 80048; 80053; 81001; 85025; 85651; 86140; 87040; 87071; 87075; 87086; 87102; 87116; 89050; 89060; J3010; Q0163; 97116; 99285-25

== ENCOUNTER → 2019-01-12 | Outpatient (CLI) | payer MEDICARE ==
[~2019-01-12] MED LIST changes: -AMLO10TA2 PO; +AMLO10TA8 PO; +FOLI1TAB16 PO; +FURO40TA4 PO; +LORA10TA3 PO; +MULT1TAB52 PO; +OMEP20CA10 PO; -OMEP20CA9 PO; -OXYC-323 PO; +OXYC1TAB15 PO
--- NOTE | 2019-01-13 09:20 | CARD ---
MR#: [id number] Date of Study: 01/12/2019 Ordering Physician: PITER TAY, Referring Physician: PITER TAY, Tech: Jesica Roque RVT; Nando MATTHEWS APPROVED REPORT Patient StatusOUT-PATIENT Demolition Expert: Jesica Roque RVT; Nando HAYNES;SANNA Procedure(s) performed: Endovenous VenaSeal ablation of the left greater saphenous vein. INDICATION FOR PROCEDURE The indication(s) include : Symptomatic Chronic Venous Insufficiency with Varicose Veins, lower extre mity pain and edema. PROCEDURE NARRATIVE After explaining the risks, benefits and alternative options, informed consent was obtained from ame ent. Patient was brought to the procedure suite and duplex ultrasound was used to map out the insuffi cient saphenous vein. The access site was determined and marked on the overlying skin. The depth and diameter of the vein (s) to be treated was documented. The patient was placed supine on the procedure table and the leg was prepped and draped using sterile technique. Ultrasound guidance was again used to localize the access site. 1% lidocaine was injected into the sk in and subcutaneous tissues for local anesthesia. Using ultrasound guidance, access was obtained in t he saphenous vein with a 19-gauge thin-walled needle followed by introduction of a short guidewire. T he intraluminal location was confirmed with ultrasound and a 7 Slovak 7 cm sheath was inserted into t he vein. A 0.035 inch guidewire from the Venaseal kit was then introduced and positioned at the saphe nofemoral junction using ultrasound guidance. The 80 cm 7 Slovak introducer sheath/dilator was positi oned 5 cm from the saphenofemoral junction. The guidewire and dilator were removed and the remaining sheath was flushed with sterile saline, with the syringe remaining in place prior to the next steps. The Cyanoacrylate adhesive was loaded into a 3 cc syringe that was then attached to the 5F delivery c athter and loaded on to the Dispenser gun.The catheter was primed precisely and this 'assembly' was i ntroduced through the 7 Slovak sheath and positioned 5 cm caudal to the saphenofemoral junction under ultrasound guidance. While applying compression cephalad to the cathter tip with the ultrasound guillen sducer, 0.10 cc of the VenaSeal adhesive was delivered into the vein by pulling the trigger of the [employer] angelica gun. The catheter was pulled back 1 cm and another 0.10 cc of the adhesive was delivered foll owing which the catheter was pulled back 3 cm. Compression was applied over the vein for 3 minutes. T he catheter tip position was confirmed again using the ultrasound, 0.10 cc Venaseal adhesive delivere d, catheter pulled back 3 cm and compression applied for 30 seconds. These steps were repeated to tr eat the entire length of the incompetent vein. Following the last injection and compression sequence, the catheter and introducer sheath were pulled out from the access site. Hemostasis was achieved with manual compression and an adhesive bandage wa s applied to the incision. Ultrasound confirmed complete coaptation and closure of the treated segmen ts of the greater saphenous vein, and the absence of any DVT at the saphenofemoral junction. Treated length was 55 cm. The drapes were removed and the patient cleaned and prepared for discharge. Patient tolerated the pro cedure well. There were no immediate complications. Postop ultrasound check scheduled for 48-72 hours and the patient was given written postop instructions. Signed by : Piter Tay, Electronically Approved : 01/12/2019 15:07:16
--- NOTE | 2019-01-13 14:48 | CARD ---
MR#: [id number] Date of Study: 01/13/2019 Ordering Physician: PITER TAY, Referring Physician: PITER TAY, Tech: Jesica Roque RVT; Nando MATTHEWS APPROVED REPORT Patient StatusOUT-PATIENT Php Architect: Jesica Roque RVT; Nando HAYNES;SANNA Procedure(s) performed: Endovenous Vena Seal ablation of the right greater saphenous vein. INDICATION FOR PROCEDURE The indication(s) include : Symptomatic Chronic Venous Insufficiency with Varicose Veins, lower extre mity pain and edema. PROCEDURE NARRATIVE After explaining the risks, benefits and alternative options, informed consent was obtained from ame ent. Patient was brought to the procedure suite and duplex ultrasound was used to map out the insuffi cient saphenous vein. The access site was determined and marked on the overlying skin. The depth and diameter of the vein (s) to be treated was documented. The patient was placed supine on the procedure table and the leg was prepped and draped using sterile technique. Ultrasound guidance was again used to localize the access site. 1% lidocaine was injected into the sk in and subcutaneous tissues for local anesthesia. Using ultrasound guidance, access was obtained in t he saphenous vein with a 19-gauge thin-walled needle followed by introduction of a short guidewire. T he intraluminal location was confirmed with ultrasound and a 7 Burkinan 7 cm sheath was inserted into t he vein. A 0.035 inch guidewire from the Venaseal kit was then introduced and positioned at the saphe nofemoral junction using ultrasound guidance. The 80 cm 7 Burkinan introducer sheath/dilator was positi oned 5 cm from the saphenofemoral junction. The guidewire and dilator were removed and the remaining sheath was flushed with sterile saline, with the syringe remaining in place prior to the next steps. The Cyanoacrylate adhesive was loaded into a 3 cc syringe that was then attached to the 5F delivery c athter and loaded on to the Dispenser gun.The catheter was primed precisely and this 'assembly' was i ntroduced through the 7 Burkinan sheath and positioned 5 cm caudal to the saphenofemoral junction under ultrasound guidance. While applying compression cephalad to the cathter tip with the ultrasound guillen sducer, 0.10 cc of the VenaSeal adhesive was delivered into the vein by pulling the trigger of the [employer] angelica gun. The catheter was pulled back 1 cm and another 0.10 cc of the adhesive was delivered foll owing which the catheter was pulled back 3 cm. Compression was applied over the vein for 3 minutes. T he catheter tip position was confirmed again using the ultrasound, 0.10 cc Venaseal adhesive delivere d, catheter pulled back 3 cm and compression applied for 30 seconds. These steps were repeated to tr eat the entire length of the incompetent vein. Following the last injection and compression sequence, the catheter and introducer sheath were pulled out from the access site. Hemostasis was achieved with manual compression and an adhesive bandage wa s applied to the incision. Ultrasound confirmed complete coaptation and closure of the treated segmen ts of the greater saphenous vein, and the absence of any DVT at the saphenofemoral junction. Treated length was 37 cm. The drapes were removed and the patient cleaned and prepared for discharge. Patient tolerated the pro cedure well. There were no immediate complications. Postop ultrasound check scheduled for 48-72 hours and the patient was given written postop instructions. Signed by : Piter Tay, Electronically Approved : 01/13/2019 14:48:44
== END | disposition home or self-care (01) ==
LOC: VNUS 13:36
PROVIDERS: ATTEND Internal Medicine Cardiovascular Disease
DX: I83.812 Varicose veins of left lower extremity with pain (principal)
CPT/HCPCS: 36482

== ENCOUNTER → 2019-01-13 | Outpatient (CLI) | payer MEDICARE ==
[~2019-01-13] MED LIST changes: +VITA-8 PO; -VITA400C36 PO
== END ==
LOC: VNUS 13:46
PROVIDERS: ATTEND Internal Medicine Cardiovascular Disease
DX: I87.321 Chronic venous hypertension (idiopathic) with inflammation of right lower extremity (principal)
CPT/HCPCS: 36482

== ENCOUNTER → 2019-03-05 | Outpatient (CLI) | payer MEDICARE ==
--- NOTE | 2019-03-05 12:48 | RAD ---
EXAM: Left knee, 3 views. HISTORY: Pain. COMPARISON: None. FINDINGS: 3 views of the left knee are obtained. There is medial compartment joint space narrowing with subchondral sclerosis, subchondral cyst formation and spurring. There is enthesopathy along the superior patella. IMPRESSION: 1. Mild medial compartment osteoarthritis of the left knee. 2. No acute osseous finding. Electronically signed by: Lizeth Martinez MD (03/05/2019 12:45 PM) [id number]
== END | disposition home or self-care (01) ==
LOC: RAD 11:54
PROVIDERS: ATTEND Family Medicine
DX: M17.12 Unilateral primary osteoarthritis, left knee (principal); M76.9 Unspecified enthesopathy, lower limb, excluding foot
CPT/HCPCS: 73562